=== PATIENT | male | born 1945 | race Caucasian/White ===

== ENCOUNTER 2017-08-14 20:50 | Inpatient (IN) | payer MEDICARE, OTHER ==
[2017-08-14] MEDS ORDERED: fentaNYL 100 MCG/2 ML SDV IVPUSH ONE ×2 (22:27→22:55)
[2017-08-14] MEDS ORDERED: Sodium Chloride 0.9% 1,000 ML IV SCH (22:30)
--- NOTE | 2017-08-14 22:33 | EDM.PDOC ---
ED HPI GENERAL MEDICAL PROBLEM - General Chief Complaint: Upper Extremity Injury/Pain Stated Complaint: FALL Time Seen by Provider: 08/14/17 21:10 Source of Information: Reports: Patient, Family History Limitations: Reports: No Limitations - History of Present Illness INITIAL COMMENTS - FREE TEXT/NARRATIVE: 72-year-old patient caught his foot on one of the legs of his 's walker and fell onto the floor. He fell hard onto his right side, sustaining significant immediate pain in the shoulder and upper arm, as well as the right hip area. He was unable to get up so his family managed to assist him into a chair, finally into a car and then into the ambulance garage. He's having difficulty bearing weight with his right leg and is having significant pain with movement of his right arm. He did not hit his head, did not sustain chest or abdominal injuries. He has a history of a lung transplant 8 years ago but has been doing very well. Onset: Sudden Duration: Hour(s): (Within the past hour) Location: Reports: Upper Extremity, Right, Lower Extremity, Right Quality: Reports: Sharp, Stabbing Severity: Moderate Worsens with: Reports: Other (Right hip pain is worse with movement or weightbearing), Movement (Right arm pain is worse with attempted movement) Associated Symptoms: Reports: No Other Symptoms. Denies: Confusion, Headaches, Nausea/Vomiting, Shortness of Breath right shoulder Pain Score (Numeric/FACES): 10 right hip Pain Score (Numeric/FACES): 7 - Related Data Allergies Allergy/AdvReac Type Severity Reaction Status Date / Time morphine AdvReac Severe Hallucinati Verified 08/14/17 21:00 ons Home Meds: Home Meds Aspirin [Adult Low Dose Aspirin EC] 81 mg PO QAM 03/19/14 [History] Calcium Carbonate/Vitamin D3 [Calcium 250+D] 1 tab PO ACLUNCH 03/19/14 [History] Citalopram Hydrobromide [Celexa] 20 mg PO QPM 03/19/14 [History] ClonazePAM [KlonoPIN] 0.5 mg PO BEDTIME 03/19/14 [History] Fish Oil/Berino-3 Fatty Acids [Fish Oil 1,000 MG] 1 each PO BID 03/19/14 [History ] Insulin Glarg,Human.Rec.Analog [Lantus] 26 unit SQ DAILY 03/19/14 [History] Magnesium Oxide 400 mg PO ACLUNCH 03/19/14 [History] Multivitamin [Multivitamins] 1 each PO ACLUNCH 03/19/14 [History] Propranolol [Inderal] 20 mg PO BEDTIME 03/19/14 [History] Tacrolimus [Prograf] 3 mg PO BEDTIME 03/19/14 [History] amLODIPine Besylate [Amlodipine Besylate] 2.5 mg PO QAM 03/19/14 [History] predniSONE [Prednisone] 5 mg PO QAM 03/19/14 [History] Azithromycin [Zithromax] 250 mg PO .QMWF 02/15/15 [History] Insulin Aspart [Novolog Flexpen] 5 units SUBCUT BID 02/15/15 [History] Mycophenolate [Myfortic] 1,000 mg PO BID 02/15/15 [History] Ranitidine [Zantac] 150 mg PO BID 02/15/15 [History] Sulfamethoxazole/Trimethoprim [Bactrim Ds Tablet] 1 tab PO .QMWF 02/15/15 [ History] Tacrolimus [Prograf] 4 mg PO DAILY 02/15/15 [History] Voriconazole [Vfend] 200 mg PO QAM 02/15/15 [History] Budesonide/Formoterol [Symbicort 160-4.5 MCG] 2 puff INH BID 08/19/15 [History] Cholecalciferol (Vitamin D3) [Vitamin D3] 1 tab PO DAILY 08/19/15 [History] Oxybutynin 5 mg PO BID 08/14/17 [History] Propranolol [Inderal] 30 mg PO DAILY 08/14/17 [History] Vit A/Vit C/Vit E/Zinc/Copper [Preservision] 1 tab PO BID 08/14/17 [History] atorvaSTATin [Lipitor] 40 mg PO BEDTIME 08/14/17 [History] Past Medical History HEENT History: Reports: Cataract Cardiovascular History: Reports: Afib, CAD, High Cholesterol, Hypertension Respiratory History: Reports: Pulmonary Fibrosis, Sleep Apnea, Other (See Below) Other Respiratory History: IPF- idiopathic pulmonary fibrosis. Gastrointestinal History: Reports: Cholelithiasis Genitourinary History: Reports: Chronic Renal Insuffiency, Renal Disease Psychiatric History: Reports: Depression Endocrine/Metabolic History: Reports: Diabetes, Type II, Osteoporosis, Vitamin D Deficiency Hematologic History: Reports: Blood Transfusion(s) Immunologic History: Reports: Immunosuppression Other Immunologic History: antirejection medication d/t lung transplant Oncologic (Cancer) History: Reports: Lung, Other (See Below) Other Oncologic History: squamous sell skin cancer, PTLD- post transplant lymphocyte disorder - Past Surgical History HEENT Surgical History: Reports: Cataract Surgery Other HEENT Surgeries/Procedures: eye surgery Cardiovascular Surgical History: Reports: Coronary Artery Stent, Vascular Surgery Other Respiratory Surgeries/Procedures: Right lung removed, tumor removed for left lung, right lung transplant. 2009 GI Surgical History: Reports: Appendectomy, Cholecystectomy, Colonoscopy, Small Bowel Musculoskeletal Surgical History: Reports: Hip Replacement Social & Family History - Tobacco Use Smoking Status *Q: Former Smoker Years of Tobacco use: 25 Packs/Tins Daily: 1 Used Tobacco, but Quit: Yes Month Tobacco Last Used: 1984 Second Hand Smoke Exposure: No - Caffeine Use Caffeine Use: Reports: Coffee - Alcohol Use Days Per Week of Alcohol Use: 0 - Recreational Drug Use Recreational Drug Use: No Review of Systems - Review of Systems Review Of Systems: See Below Constitutional: Denies: Fever Respiratory: Denies: Shortness of Breath Cardiovascular: Denies: Chest Pain GI/Abdominal: Denies: Nausea, Vomiting Skin: Reports: No Symptoms Neurological: Denies: Headache Psychiatric: Reports: No Symptoms ED EXAM, GENERAL - Physical Exam Exam: See Below Exam Limited By: No Limitations General Appearance: Alert, Mild Distress Eye Exam: Bilateral Eye: EOMI Neck: Supple, Non-Tender Respiratory/Chest: No Respiratory Distress Cardiovascular: Regular Rate, Rhythm GI/Abdominal: Soft, Non-Tender Extremities: Other (Significant discomfort of the proximal right femur and hip area with passive range of motion, no shortening or rotation. Intensely painful in the proximal right humerus with even mild palpation or slight passive range of motion.) Psychiatric: Normal Affect, Normal Mood Skin Exam: Warm, Dry Course - Vital Signs Last Recorded V/S: Last Vital Signs Temp 99.1 F 08/15/17 03:36 Pulse 84 08/15/17 03:36 Resp 18 08/15/17 03:36 BP 117/70 08/15/17 03:36 Pulse Ox 92 L 08/15/17 03:39 - Orders/Labs/Meds Orders: Active Orders 24 hr Category Date Time Status Hip Min 2V or 3V w Pelvis Rt [CR] Stat Exams 08/14/17 21:42 Taken Hip wo Cont Rt [CT] Stat Exams 08/15/17 00:01 Taken Shoulder Comp Rt [CR] Stat Exams 08/14/17 21:42 Taken Sodium Chloride 0.9% [Normal Saline] 1,000 ml Med 08/14/17 22:30 Active IV ASDIRECTED Medication Orders Acetaminophen (Tylenol) 650 mg PO Q4H PRN PRN Reason: Pain (Mild 1-3)/fever Albuterol (Proventil Neb Soln) 2.5 mg NEB Q4H PRN PRN Reason: Shortness Of Breath/wheezing Albuterol/Ipratropium (Duoneb 3.0-0.5 Mg/3 Ml) 3 ml NEB QID PRN PRN Reason: Shortness Of Breath/wheezing Amlodipine Besylate (Norvasc) 2.5 mg PO QAM [facility] Aspirin (Halfprin) 81 mg PO QAM [facility] Atorvastatin Calcium (Lipitor) 40 mg PO BEDTIME [facility] Azithromycin (Zithromax) 250 mg PO MoWeFr@0900 [facility] Bisacodyl (Dulcolax) 5 mg PO DAILY PRN PRN Reason: Constipation Citalopram Hydrobromide (Celexa) 20 mg PO QPM [facility] Clonazepam (Klonopin) 0.5 mg PO BEDTIME [facility] Docusate Sodium (Colace) 100 mg PO BID PRN PRN Reason: Constipation Fentanyl Citrate (Fentanyl In Ns 20 Mcg/Ml 30 Ml Shading Painter) 0 mcg IV ASDIRECTED PRN; Protocol PRN Reason: Pain Last Admin: 08/15/17 03:55 Dose: 600 mcg Sodium Chloride (Normal Saline) 1,000 mls @ 150 mls/hr IV ASDIRECTED [facility] Last Admin: 08/14/17 22:45 Dose: 150 mls/hr Insulin Aspart (Novolog) 5 unit SUBCUT BIDMEALS [facility] Insulin Detemir (Levemir) 26 unit SUBCUT DAILY [facility] Lorazepam (Ativan) 1 mg IV Q6H PRN PRN Reason: Nausea/Vomiting Magnesium Oxide (Magnesium Oxide) 400 mg PO ACLUNCH [facility] Mometasone Furoate/Formoterol Fumar (Dulera 200-5 Mcg) 2 puff IH BIDRT [facility] Naloxone HCl (Narcan) 0.4 mg IVPUSH Q2M PRN PRN Reason: Respiratory Distress Naloxone HCl (Narcan) 0.4 mg IVPUSH Q2M PRN PRN Reason: Respiratory Distress Non-Formulary Medication (Mycophenolate [Myfortic]) 1,000 mg PO BID [facility] Non-Formulary Medication (Voriconazole [Vfend]) 200 mg PO QAM [facility] Ondansetron HCl (Zofran Odt) 4 mg PO Q6H PRN PRN Reason: Nausea able to take PO Oxybutynin Chloride (Oxybutynin) 5 mg PO BID [facility] Prednisone (Prednisone) 5 mg PO QAM [facility] Propranolol HCl (Inderal) 20 mg PO BEDTIME [facility] Propranolol HCl (Inderal) 30 mg PO DAILY [facility] Ranitidine HCl (Zantac) 150 mg PO BID [facility] Tacrolimus (Prograf) 3 mg PO BEDTIME [facility] Tacrolimus (Prograf) 4 mg PO DAILY [facility] Temazepam (Restoril) 15 mg PO BEDTIME PRN PRN Reason: Sleep Trimethoprim/Sulfamethoxazole (Septra Ds) 1 tab PO MoWeFr@0900 [facility] Labs: Laboratory Tests 08/14/17 08/14/17 Range/Units 22:25 22:37 WBC 12.8 H (4.5-11.0) K/uL RBC 4.40 (4.30-5.90) M/uL Hgb 12.8 (12.0-15.0) g/dL Hct 41.5 (40.0-54.0) % MCV 94 (80-98) fL MCH 29 (27-31) pg MCHC 31 L (32-36) % Plt Count 174 (150-400) K/uL Neut % (Auto) 82 H (36-66) % Lymph % (Auto) 5 L (24-44) % Chase % (Auto) 12 H (2-6) % Eos % (Auto) 1 L (2-4) % Baso % (Auto) 0 (0-1) % Sodium 141 (140-148) mmol/L Potassium 5.1 (3.6-5.2) mmol/L Chloride 104 (100-108) mmol/L Carbon Dioxide 27 (21-32) mmol/L Anion Gap 10.1 (5.0-14.0) mmol/L BUN 34 H (7-18) mg/dL Creatinine 1.8 H (0.8-1.3) mg/dL Est Cr Clr Drug Dosing 34.17 mL/min Estimated GFR (MDRD) 37 L (>60) Glucose 165 H (74-106) mg/dL Calcium 9.9 (8.5-10.1) mg/dL Total Bilirubin 0.4 (0.2-1.0) mg/dL AST 22 (15-37) U/L ALT 28 (12-78) U/L Alkaline Phosphatase 108 (46-116) U/L Total Protein 6.7 (6.4-8.2) g/dL Albumin 3.7 (3.4-5.0) g/dL Globulin 3.0 (2.3-3.5) g/dL Albumin/Globulin Ratio 1.2 (1.2-2.2) Meds: Medications Generic Name Dose Route Start Last Admin Trade Name Freq PRN Reason Stop Dose Admin Acetaminophen 650 mg 08/15/17 03:09 Tylenol PO Q4H PRN Pain (Mild 1-3)/fever Albuterol 2.5 mg 08/15/17 03:09 Proventil Neb Soln NEB Q4H PRN Shortness Of Breath/wheezing Albuterol/Ipratropium 3 ml 08/15/17 03:09 Duoneb 3.0-0.5 Mg/3 Ml NEB QID PRN Shortness Of Breath/wheezing Amlodipine Besylate 2.5 mg 08/15/17 09:00 Norvasc PO QAM [facility] Aspirin 81 mg 08/15/17 09:00 Halfprin PO QAM [facility] Atorvastatin Calcium 40 mg 08/15/17 21:00 Lipitor PO BEDTIME [facility] Azithromycin 250 mg 08/16/17 09:00 Zithromax PO MoWeFr@0900 [facility] Bisacodyl 5 mg 08/15/17 03:09 Dulcolax PO DAILY PRN Constipation Citalopram Hydrobromide 20 mg 08/15/17 17:00 Celexa PO QPM [facility] Clonazepam 0.5 mg 08/15/17 21:00 Klonopin PO BEDTIME [facility] Docusate Sodium 100 mg 08/15/17 03:09 Colace PO BID PRN Constipation Fentanyl Citrate 0 mcg 08/15/17 03:09 08/15/17 03:55 Fentanyl In Ns 20 Mcg/Ml 30 Ml Shading Painter IV 600 mcg ASDIRECTED PRN Administration Pain Protocol Sodium Chloride 1,000 mls @ 150 mls/hr 08/14/17 22:30 08/14/17 22:45 Normal Saline IV 150 mls/hr ASDIRECTED [facility] Administration Insulin Aspart 5 unit 08/15/17 08:00 Novolog SUBCUT BIDMEALS [facility] Insulin Detemir 26 unit 08/15/17 09:00 Levemir SUBCUT DAILY [facility] Lorazepam 1 mg 08/15/17 03:09 Ativan IV Q6H PRN Nausea/Vomiting Magnesium Oxide 400 mg 08/15/17 11:00 Magnesium Oxide PO ACLUNCH [facility] Mometasone Furoate/Formoterol Fumar 2 puff 08/15/17 07:00 Dulera 200-5 Mcg IH BIDRT [facility] Naloxone HCl 0.4 mg 08/15/17 03:09 Narcan IVPUSH Q2M PRN Respiratory Distress Naloxone HCl 0.4 mg 08/15/17 03:09 Narcan IVPUSH Q2M PRN Respiratory Distress Non-Formulary Medication 1,000 mg 08/15/17 09:00 Mycophenolate [Myfortic] PO BID [facility] Non-Formulary Medication 200 mg 08/15/17 09:00 Voriconazole [Vfend] PO QAM [facility] Ondansetron HCl 4 mg 08/15/17 03:09 Zofran Odt PO Q6H PRN Nausea able to take PO Oxybutynin Chloride 5 mg 08/15/17 09:00 Oxybutynin PO BID [facility] Prednisone 5 mg 08/15/17 09:00 Prednisone PO QAM [facility] Propranolol HCl 20 mg 08/15/17 21:00 Inderal PO BEDTIME [facility] Propranolol HCl 30 mg 08/15/17 09:00 Inderal PO DAILY [facility] Ranitidine HCl 150 mg 08/15/17 09:00 Zantac PO BID [facility] Tacrolimus 3 mg 08/15/17 21:00 Prograf PO BEDTIME [facility] Tacrolimus 4 mg 08/15/17 09:00 Prograf PO DAILY [facility] Temazepam 15 mg 08/15/17 03:09 Restoril PO BEDTIME PRN Sleep Trimethoprim/Sulfamethoxazole 1 tab 08/16/17 09:00 Septra Ds PO MoWeFr@0900 [facility] Discontinued Medications Generic Name Dose Route Start Last Admin Trade Name Freq PRN Reason Stop Dose Admin Fentanyl 25 mcg 08/14/17 22:27 08/14/17 22:38 Sublimaze IVPUSH 08/14/17 22:28 25 mcg ONETIME ONE Administration Fentanyl 25 mcg 08/14/17 22:55 08/14/17 22:59 Sublimaze IVPUSH 08/14/17 22:56 25 mcg ONETIME ONE Administration Fentanyl 50 mcg 08/15/17 00:30 08/15/17 00:37 Sublimaze IVPUSH 08/15/17 00:31 50 mcg ONETIME ONE Administration Fentanyl 50 mcg 08/15/17 01:59 08/15/17 02:15 Sublimaze IVPUSH 08/15/17 02:00 50 mcg ONETIME ONE Administration Lorazepam 1 mg 08/15/17 01:58 08/15/17 02:12 Ativan IVPUSH 08/15/17 01:59 1 mg ONETIME ONE Administration - Re-Assessments/Exams Free Text/Narrative Re-Assessment/Exam: 08/14/17 22:31 An x-ray of the right shoulder and right hip were obtained. The patient has a spiral minimally displaced fracture of the surgical neck of the right humerus. The hip x-ray looks normal. CBC and CMP were obtained, IV started for pain control and hydration and the patient will be admitted for observation. I did inform orthopedics, Dr. Junaid Ch, who can consult tomorrow. Right arm will be placed in the sling and swath for comfort, he was given 25 g of IV fentanyl. 08/15/17 01:13 Because of the intense right hip pain, CT of the right hip was obtained. This did reveal a lucency in the acetabulum, likely a nondisplaced fracture. Departure - Departure Time of Disposition: 03:18 Disposition: Admitted As Inpatient 65 Condition: Fair Clinical Impression: Lung transplanted Right humeral fracture Qualifiers: Encounter type: initial encounter Humerus Location: surgical neck Fracture type : closed Fracture morphology: unspecified fracture morphology Fracture alignment : displaced Qualified Code(s): S42.211A - Unspecified displaced fracture of surgical neck of right humerus, initial encounter for closed fracture Right acetabular fracture Qualifiers: Encounter type: initial encounter Sublocation of acetabulum: unspecified portion of acetabulum Fracture type: closed Fracture alignment: nondisplaced Qualified Code(s): S32.401A - Unspecified fracture of right acetabulum, initial encounter for closed fracture - Discharge Information - My Orders Last 24 Hours: My Active Orders 08/14/17 21:42 Hip Min 2V or 3V w Pelvis Rt [CR] Stat Shoulder Comp Rt [CR] Stat 08/14/17 22:30 Sodium Chloride 0.9% [Normal Saline] 1,000 ml IV ASDIRECTED 08/15/17 00:01 Hip wo Cont Rt [CT] Stat - Assessment/Plan Last 24 Hours: My Active Orders 08/14/17 21:42 Hip Min 2V or 3V w Pelvis Rt [CR] Stat Shoulder Comp Rt [CR] Stat 08/14/17 22:30 Sodium Chloride 0.9% [Normal Saline] 1,000 ml IV ASDIRECTED 08/15/17 00:01 Hip wo Cont Rt [CT] Stat
[2017-08-15] MEDS ORDERED: fentaNYL 100 MCG/2 ML SDV IVPUSH ONE ×2 (00:30→01:59)
[2017-08-15] MEDS ORDERED: LORazepam 2 MG/ML MDV IVPUSH ONE (01:58)
[2017-08-15] MEDS ORDERED: Albuterol/Ipratropium 3.0-0.5 MG/3 ML Neb Soln NEB PRN (03:09)
[2017-08-15] MEDS ORDERED: fentaNYL/Normal Saline 600 MCG/30 ML PCA Vial IV PRN (03:09)
[2017-08-15] MEDS ORDERED: LORazepam 2 MG/ML MDV IV PRN (03:09)
[2017-08-15] MEDS ORDERED: Temazepam 15 MG Cap PO PRN (03:09)
[2017-08-15] MEDS ORDERED: Acetaminophen 325 MG Tab PO PRN (03:09)
[2017-08-15] MEDS ORDERED: Ondansetron 4 MG Tab.DIS PO PRN (03:09)
[2017-08-15] MEDS ORDERED: Naloxone 0.4 MG/ML SDV IVPUSH PRN ×2 (03:09)
[2017-08-15] MEDS ORDERED: Docusate Sodium 100 MG Cap PO PRN (03:09)
[2017-08-15] MEDS ORDERED: Bisacodyl 5 MG Tab PO PRN (03:09)
[2017-08-15] MEDS ORDERED: Albuterol 0.083% 2.5 MG/3 ML Neb Soln NEB PRN (03:09)
--- NOTE | 2017-08-15 03:14 | PCM.HP ---
H&P History of Present Illness - General Date of Service: 08/14/17 Admit Problem/Dx: Admission Diagnosis/Problem Admission Diagnosis/Problem Fall at home Source of Information: Patient History Limitations: Reports: No Limitations - History of Present Illness Initial Comments - Free Text/Narative: 72-year-old patient caught his foot on one of the legs of his 's walker and fell onto the floor. He fell hard onto his right side, sustaining significant immediate pain in the shoulder and upper arm, as well as the right hip area. He was unable to get up so his family managed to assist him into a chair, finally into a car and then into the ambulance garage. He's having difficulty bearing weight with his right leg and is having significant pain with movement of his right arm. He did not hit his head, did not sustain chest or abdominal injuries. He has a history of a lung transplant 8 years ago but has been doing very well. Onset: Sudden Duration: Hour(s): (Within the past hour) Location: Reports: Upper Extremity, Right, Lower Extremity, Right Quality: Reports: Sharp, Stabbing Severity: Moderate Worsens with: Reports: Other (Right hip pain is worse with movement or weightbearing), Movement (Right arm pain is worse with attempted movement) Associated Symptoms: Reports: No Other Symptoms. Denies: Confusion, Headaches, Nausea/Vomiting, Shortness of Breath right shoulder Pain Score (Numeric/FACES): 10 right hip Pain Score (Numeric/FACES): 7 Onset of Symptoms: Reports: Today Duration of Symptoms: Reports: Hour(s):, Constant Location: Reports: Upper Extremity, Right, Lower Extremity, Right Quality: Reports: Sharp, Throbbing Severity: Severe Improves with: Reports: Immobilization Worsens with: Reports: Movement Context: Reports: Trauma (fall at home) Associated Symptoms: Reports: No Other Symptoms right shoulder Pain Score (Numeric/FACES): 10 right hip Pain Score (Numeric/FACES): 7 - Related Data Allergies/Adverse Reactions: Allergies Allergy/AdvReac Type Severity Reaction Status Date / Time morphine AdvReac Severe Hallucinati Verified 08/14/17 21:00 ons Home Medications: Home Meds Aspirin [Adult Low Dose Aspirin EC] 81 mg PO QAM 03/19/14 [History] Calcium Carbonate/Vitamin D3 [Calcium 250+D] 1 tab PO ACLUNCH 03/19/14 [History] Citalopram Hydrobromide [Celexa] 20 mg PO QPM 03/19/14 [History] ClonazePAM [KlonoPIN] 0.5 mg PO BEDTIME 03/19/14 [History] Fish Oil/[place]-3 Fatty Acids [Fish Oil 1,000 MG] 1 each PO BID 03/19/14 [History ] Insulin Glarg,Human.Rec.Analog [Lantus] 26 unit SQ DAILY 03/19/14 [History] Magnesium Oxide 400 mg PO ACLUNCH 03/19/14 [History] Multivitamin [Multivitamins] 1 each PO ACLUNCH 03/19/14 [History] Propranolol [Inderal] 20 mg PO BEDTIME 03/19/14 [History] Tacrolimus [Prograf] 3 mg PO BEDTIME 03/19/14 [History] amLODIPine Besylate [Amlodipine Besylate] 2.5 mg PO QAM 03/19/14 [History] predniSONE [Prednisone] 5 mg PO QAM 03/19/14 [History] Azithromycin [Zithromax] 250 mg PO .QMWF 02/15/15 [History] Insulin Aspart [Novolog Flexpen] 5 units SUBCUT BID 02/15/15 [History] Mycophenolate [Myfortic] 1,000 mg PO BID 02/15/15 [History] Ranitidine [Zantac] 150 mg PO BID 02/15/15 [History] Sulfamethoxazole/Trimethoprim [Bactrim Ds Tablet] 1 tab PO .QMWF 02/15/15 [ History] Tacrolimus [Prograf] 4 mg PO DAILY 02/15/15 [History] Voriconazole [Vfend] 200 mg PO QAM 02/15/15 [History] Budesonide/Formoterol [Symbicort 160-4.5 MCG] 2 puff INH BID 08/19/15 [History] Cholecalciferol (Vitamin D3) [Vitamin D3] 1 tab PO DAILY 08/19/15 [History] Oxybutynin 5 mg PO BID 08/14/17 [History] Propranolol [Inderal] 30 mg PO DAILY 08/14/17 [History] Vit A/Vit C/Vit E/Zinc/Copper [Preservision] 1 tab PO BID 08/14/17 [History] atorvaSTATin [Lipitor] 40 mg PO BEDTIME 08/14/17 [History] Past Medical History HEENT History: Reports: Cataract Cardiovascular History: Reports: Afib, CAD, High Cholesterol, Hypertension Respiratory History: Reports: Pulmonary Fibrosis, Sleep Apnea, Other (See Below) Other Respiratory History: IPF- idiopathic pulmonary fibrosis. Gastrointestinal History: Reports: Cholelithiasis Genitourinary History: Reports: Chronic Renal Insuffiency, Renal Disease Psychiatric History: Reports: Depression Endocrine/Metabolic History: Reports: Diabetes, Type II, Osteoporosis, Vitamin D Deficiency Hematologic History: Reports: Blood Transfusion(s) Immunologic History: Reports: Immunosuppression Other Immunologic History: antirejection medication d/t lung transplant Oncologic (Cancer) History: Reports: Lung, Other (See Below) Other Oncologic History: squamous sell skin cancer, PTLD- post transplant lymphocyte disorder - Past Surgical History HEENT Surgical History: Reports: Cataract Surgery Other HEENT Surgeries/Procedures: eye surgery Cardiovascular Surgical History: Reports: Coronary Artery Stent, Vascular Surgery Other Respiratory Surgeries/Procedures: Right lung removed, tumor removed for left lung, right lung transplant. 2009 GI Surgical History: Reports: Appendectomy, Cholecystectomy, Colonoscopy, Small Bowel Musculoskeletal Surgical History: Reports: Hip Replacement Social & Family History - Tobacco Use Smoking Status *Q: Former Smoker Years of Tobacco use: 25 Packs/Tins Daily: 1 Used Tobacco, but Quit: Yes Month Tobacco Last Used: 1984 Second Hand Smoke Exposure: No - Caffeine Use Caffeine Use: Reports: Coffee - Alcohol Use Days Per Week of Alcohol Use: 0 - Recreational Drug Use Recreational Drug Use: No H&P Review of Systems - Review of Systems: Review Of Systems: See Below General: Reports: Other (pain in right upper arm and right hip and leg) HEENT: Reports: No Symptoms Pulmonary: Reports: No Symptoms Cardiovascular: Reports: No Symptoms Gastrointestinal: Reports: No Symptoms Genitourinary: Reports: No Symptoms Musculoskeletal: Reports: Arm Pain, Leg Pain, Joint Pain, Muscle Pain Skin: Reports: No Symptoms Psychiatric: Reports: Anxiety (PTSD) Neurological: Reports: Tremors Hematologic/Lymphatic: Reports: No Symptoms Immunologic: Reports: No Symptoms Exam - Exam Exam: See Below - Vital Signs Vital Signs: Last Vital Signs Temp 37.2 C 08/14/17 23:02 Pulse 76 08/14/17 20:57 Resp 18 08/14/17 23:02 BP 114/70 08/14/17 23:02 Pulse Ox 91 L 11/15/17 23:02 Weight: 67.585 kg - Exam General: Alert, Oriented, Cooperative, Sedated HEENT: PERRLA, Conjunctiva Clear, EACs Clear, EOMI, Hearing Intact, Mucosa Moist & [place], Nares Patent, Normal Nasal Septum, Posterior Pharynx Clear, TMs Clear, Glasses Neck: Supple, Trachea Midline, 2 Lungs: Clear to Auscultation, Normal Respiratory Effort Cardiovascular: Regular Rate, Regular Rhythm, Normal S1, Normal S2 GI/Abdominal Exam: Normal Bowel Sounds, Soft, Non-Tender, Other (right hip and pelvis pain ) (Male) Exam: Deferred Rectal (Males) Exam: Deferred Back Exam: Muscle Spasm Extremities: No Pedal Edema, Arm Pain, Leg Pain Peripheral Pulses: 2+: Radial (L), Radial (R), Dorsalis Pedis (L), Dorsalis Pedis (R) Neurological: Normal Speech, Other (tremors noted) Neuro Extensive - Mental Status: Alert, Oriented x3, Normal Mood/Affect, Normal Cognition Psychiatric: Alert, Normal Affect, Normal Mood - Patient Data Result Diagrams: 08/14/17 22:25 08/14/17 22:37 *Q Meaningful Use (ADM) - VTE *Q VTE Criteria *Q: - Stroke *Q Stroke Criteria *Q: - AMI *Q AMI Criteria *Q: - Problem List (1) Acetabulum fracture, right SNOMED Code(s): 03463398 ICD Code: S32.401A - UNSP FRACTURE OF RIGHT ACETABULUM, INIT FOR CLOS FX Status: Acute Priority: High Current Visit: Yes Qualifiers: Encounter type: initial encounter Sublocation of acetabulum: unspecified portion of acetabulum Fracture type: closed Fracture alignment: nondisplaced Qualified Code(s): S32.401A - Unspecified fracture of right acetabulum, initial encounter for closed fracture (2) Diabetes type 2, controlled SNOMED Code(s): 32427698 ICD Code: E11.9 - TYPE 2 DIABETES MELLITUS WITHOUT COMPLICATIONS Status: Acute Priority: Low Current Visit: Yes Qualifiers: Diabetes mellitus complication status: without complication Diabetes mellitus termination clerk insulin use: with termination clerk use Qualified Code(s): E11.9 - Type 2 diabetes mellitus without complications; Z79.4 - intermodal dispatcher (current) use of insulin; Z79.4 - intermodal dispatcher (current) use of insulin; Z79.4 - residential ( current) use of insulin; Z79.4 - residential (current) use of insulin (3) Lung transplanted SNOMED Code(s): 418217987 ICD Code: Z94.2 - LUNG TRANSPLANT STATUS Status: Acute Priority: Low Current Visit: Yes (4) Right humeral fracture SNOMED Code(s): 97338422 ICD Code: S42.301A - UNSP FRACTURE OF SHAFT OF HUMERUS, RIGHT ARM, INIT Status: Acute Priority: High Current Visit: Yes Qualifiers: Encounter type: initial encounter Humerus Location: surgical neck Fracture type: closed Fracture morphology: unspecified fracture morphology Fracture alignment: displaced Qualified Code(s): S42.211A - Unspecified displaced fracture of surgical neck of right humerus, initial encounter for closed fracture (5) Stage III chronic kidney disease SNOMED Code(s): 157922886 ICD Code: N18.3 - CHRONIC KIDNEY DISEASE, STAGE 3 (MODERATE) Status: Chronic Priority: Medium Current Visit: No Problem List Initiated/Reviewed/Updated: Yes Orders Last 24hrs: Active Orders 24 hr Category Date Time Status Patient Status [ADT] Routine ADT 08/15/17 03:09 Active Bedrest Bathroom Privileges [RC] ASDIRECTED Care 08/15/17 03:09 Active Communication Order [RC] STAT Care 08/15/17 03:09 Active Intake and Output [RC] QSHIFT Care 08/15/17 03:09 Active Notify Provider Consults [RC] ASDIRECTED Care 08/15/17 03:09 Active Notify Provider [RC] PRN Care 08/15/17 03:09 Active Oxygen Therapy [RC] PRN Care 08/15/17 03:09 Active APPLICATION DEVELOPMENT SPECIALIST Record [RC] PER UNIT ROUTINE Care 08/15/17 03:09 Active Pulse Oximetry [RC] CONTINUOUS Care 08/15/17 03:09 Active RT Aerosol Therapy [RC] ASDIRECTED Care 08/15/17 03:09 Active Up With Assistance [RC] ASDIRECTED Care 08/15/17 03:09 Active VTE/DVT Education [RC] Per Unit Routine Care 08/15/17 03:09 Active VTE/DVT Education [RC] Per Unit Routine Care 08/15/17 03:09 Active Vital Signs [RC] Q4H Care 08/15/17 03:09 Active Consult to Physician [CONS] Urgent Cons 08/15/17 03:09 Ordered OT Evaluation and Treatment [CONS] Routine Cons 08/15/17 03:09 Active PT Evaluation and Treatment [CONS] Routine Cons 08/15/17 03:09 Active Regular Diet [DIET] Diet 08/15/17 Breakfast Active BASIC METABOLIC PANEL,BMP [CHEM] AM Lab 08/15/17 05:11 Ordered CBC WITH AUTO DIFF [HEME] AM Lab 08/15/17 05:11 Ordered Acetaminophen [Tylenol] Med 08/15/17 03:09 Ordered 650 mg PO Q4H PRN Albuterol [Proventil Neb Soln] Med 08/15/17 03:09 Ordered 2.5 mg NEB Q4H PRN Albuterol/Ipratropium [DuoNeb 3.0-0.5 MG/3 ML] Med 08/15/17 03:09 Ordered 3 ml NEB QID PRN Aspirin [Halfprin] Med 08/15/17 09:00 Ordered 81 mg PO QAM Azithromycin [Zithromax] Med 08/15/17 03:09 Ordered 250 mg PO .QMWF Bisacodyl [Dulcolax] Med 08/15/17 03:09 Ordered 5 mg PO DAILY PRN Budesonide/Formoterol [Symbicort 160-4.5 MCG] Med 08/15/17 09:00 Ordered 2 puff INH BID Citalopram Hydrobromide [Celexa] Med 08/15/17 17:00 Ordered 20 mg PO QPM ClonazePAM [KlonoPIN] Med 08/15/17 21:00 Ordered 0.5 mg PO BEDTIME Docusate Sodium [Colace] Med 08/15/17 03:09 Ordered 100 mg PO BID PRN Insulin Aspart [NovoLOG] Med 08/15/17 09:00 Ordered 5 unit SUBCUT BID Insulin Glarg,Human.Rec.Analog [Lantus] Med 08/15/17 09:00 Ordered 26 unit SQ DAILY LORazepam [Ativan] Med 08/15/17 03:09 Ordered 1 mg IV Q6H PRN Magnesium Oxide Med 08/15/17 11:00 Ordered 400 mg PO ACLUNCH Mycophenolate [Myfortic] Med 08/15/17 09:00 Ordered 1,000 mg PO BID Naloxone [Narcan] Med 08/15/17 03:09 Ordered 0.4 mg IVPUSH Q2M PRN Naloxone [Narcan] Med 08/15/17 03:09 Ordered 0.4 mg IVPUSH Q2M PRN Ondansetron [Zofran ODT] Med 08/15/17 03:09 Ordered 4 mg PO Q6H PRN Oxybutynin Med 08/15/17 09:00 Ordered 5 mg PO BID Propranolol [Inderal] Med 08/15/17 21:00 Ordered 20 mg PO BEDTIME Propranolol [Inderal] Med 08/15/17 09:00 Ordered 30 mg PO DAILY Ranitidine [Zantac] Med 08/15/17 09:00 Ordered 150 mg PO BID Sulfamethoxazole/Trimethoprim [Septra DS] Med 08/15/17 03:09 Ordered 1 tab PO .QMWF Tacrolimus [Prograf] Med 08/15/17 21:00 Ordered 3 mg PO BEDTIME Tacrolimus [Prograf] Med 08/15/17 09:00 Ordered 4 mg PO DAILY Temazepam [Restoril] Med 08/15/17 03:09 Ordered 15 mg PO BEDTIME PRN Voriconazole [Vfend] Med 08/15/17 09:00 Ordered 200 mg PO QAM amLODIPine [Norvasc] Med 08/15/17 09:00 Ordered 2.5 mg PO QAM atorvaSTATin [Lipitor] Med 08/15/17 21:00 Ordered 40 mg PO BEDTIME fentaNYL/Normal Saline [fentaNYL in NS 20 MCG/ML 30 ML Med 08/15/17 03:09 Ordered APPLICATION DEVELOPMENT SPECIALIST] See Protocol IV ASDIRECTED PRN predniSONE Med 08/15/17 09:00 Ordered 5 mg PO QAM Medication Discontinuation Instructions [OM.PC] Stat Oth 08/15/17 03:09 Ordered Sequential Compression Device [OM.PC] Per Unit Routine Oth 08/15/17 03:09 Ordered Resuscitation Status Routine Resus Stat 08/15/17 02:10 Ordered Medication Orders Acetaminophen (Tylenol) 650 mg PO Q4H PRN PRN Reason: Pain (Mild 1-3)/fever Albuterol (Proventil Neb Soln) 2.5 mg NEB Q4H PRN PRN Reason: Shortness Of Breath/wheezing Albuterol/Ipratropium (Duoneb 3.0-0.5 Mg/3 Ml) 3 ml NEB QID PRN PRN Reason: Shortness Of Breath/wheezing Amlodipine Besylate (Norvasc) 2.5 mg PO QAM [facility] Aspirin (Halfprin) 81 mg PO QAM [facility] Azithromycin (Zithromax) 250 mg PO .QMWF [facility] Bisacodyl (Dulcolax) 5 mg PO DAILY PRN PRN Reason: Constipation Clonazepam (Klonopin) 0.5 mg PO BEDTIME [facility] Docusate Sodium (Colace) 100 mg PO BID PRN PRN Reason: Constipation Fentanyl Citrate (Fentanyl In Ns 20 Mcg/Ml 30 Ml Boiler Cleaner) 0 mcg IV ASDIRECTED PRN; Protocol PRN Reason: Pain Sodium Chloride (Normal Saline) 1,000 mls @ 150 mls/hr IV ASDIRECTED [facility] Last Admin: 08/14/17 22:45 Dose: 150 mls/hr Insulin Aspart (Novolog) 5 unit SUBCUT BID [facility] Lorazepam (Ativan) 1 mg IV Q6H PRN PRN Reason: Nausea/Vomiting Magnesium Oxide (Magnesium Oxide) 400 mg PO ACLUNCH [facility] Naloxone HCl (Narcan) 0.4 mg IVPUSH Q2M PRN PRN Reason: Respiratory Distress Naloxone HCl (Narcan) 0.4 mg IVPUSH Q2M PRN PRN Reason: Respiratory Distress Non-Formulary Medication (Atorvastatin [Lipitor]) 40 mg PO BEDTIME [facility] Non-Formulary Medication (Budesonide/Formoterol [Symbicort 160-4.5 Mcg]) 2 puff INH BID [facility] Non-Formulary Medication (Citalopram Hydrobromide [Celexa]) 20 mg PO QPM [facility] Non-Formulary Medication (Insulin Glarg,Human.Rec.Analog [Lantus]) 26 unit SQ DAILY [facility] Non-Formulary Medication (Mycophenolate [Myfortic]) 1,000 mg PO BID [facility] Non-Formulary Medication (Voriconazole [Vfend]) 200 mg PO QAM [facility] Ondansetron HCl (Zofran Odt) 4 mg PO Q6H PRN PRN Reason: Nausea able to take PO Oxybutynin Chloride (Oxybutynin) 5 mg PO BID [facility] Prednisone (Prednisone) 5 mg PO QAM [facility] Propranolol HCl (Inderal) 20 mg PO BEDTIME [facility] Propranolol HCl (Inderal) 30 mg PO DAILY [facility] Ranitidine HCl (Zantac) 150 mg PO BID [facility] Tacrolimus (Prograf) 3 mg PO BEDTIME [facility] Tacrolimus (Prograf) 4 mg PO DAILY [facility] Temazepam (Restoril) 15 mg PO BEDTIME PRN PRN Reason: Sleep Trimethoprim/Sulfamethoxazole (Septra Ds) 1 tab PO .QMWF [facility] Assessment/Plan Comment:: Admission Template ASSESSMENT / PLAN This is a 72 year old male who fell at home prior to arrival from home. His ER evaluation noted fracture to right humerus and right acetabular. An x-ray of the right shoulder and right hip were obtained. The patient has a spiral minimally displaced fracture of the surgical neck of the right humerus. The hip x-ray looks normal. CBC and CMP were obtained, IV started for pain control and hydration and the patient will be admitted for pain control and ortho consult. ER Physician did inform orthopedics, Dr. Junaid hC, who can consult tomorrow. Right arm will be placed in the sling and swath for comfort, he was given 25 g of IV fentanyl. Because of the intense right hip pain, CT of the right hip was obtained. This did reveal a lucency in the acetabulum, likely a nondisplaced fracture. Goals: Patient will be admitted for pain control of his right humeral fracture and acetabular fracture, and an orthopedic evaluation of the fractures will be obtained tomorrow. Plan Fracture Right humeral, and right acetabular -Admit to ICU med overflow for further monitoring -IV Fluids for rehydration NS at 125 mL per hour -APPLICATION DEVELOPMENT SPECIALIST fentanyl -right arm in sling -right leg no wt bearing Diabete Type 2 -order Lantas 26 units subcut daily -order Novolog 5 units subcut bid -blood glucose check before meals and at bedtime hx of lung transplant -medication order Maintenance issues -Orders home meds: -Nutrition: regular diet -[place]ondon catheter not indicated at this time -DVT: SCD -PPI; PO Protonix 40mg daily -consult OT for discharge planning -consult PT for strengthing. CODE STATUS: FULL CODE Admission status: Admit to ICU Med-surge overflow Admission justification. This patient will be admitted for inpatient services and is medically appropriate meeting medical necessity for inpatient admission as outlined in my documentation. I reasonably expect the patient will require inpatient services that span. Time over 2 midnights. I reasonably expect this patient to be discharged or transferred within 96 hours after admission to the critical access hospital. Disposition; home Primary care provider: [facility], notified Hospitalist: Dr. Marie
[2017-08-15] MEDS ORDERED: Formoterol/Mometasone 200-5 MCG 8.8 GM Inhaler IH SCH (07:00)
[2017-08-15] MEDS: Formoterol/Mometasone 200-5 MCG 8.8 GM Inhaler IH SCH ×2 (08:11→21:06)
[2017-08-15] MEDS: Insulin Aspart 100 Units/ML 3 ML Pen SUBCUT SCH ×2 (08:22→17:09)
--- NOTE | 2017-08-15 08:32 | CR ---
Right humeral surgical neck fracture with minimal displacement. No pneumothorax the right. Rib fractu res on the right are likely remote.
[2017-08-15] MEDS: Tacrolimus 1 MG Cap PO SCH ×2 (08:34→21:07)
--- NOTE | 2017-08-15 08:34 | CR ---
Right femoral neck is intact. Slight irregularity at the superior pubic ramus. Refer to CT.
[2017-08-15] MEDS: Mycophenolate Mofetil 250 MG Cap PO SCH ×2 (08:35→21:07)
[2017-08-15] MEDS: Propranolol 10 MG Tab PO SCH ×2 (08:38→21:07)
[2017-08-15] MEDS: Aspirin 81 MG Tab.EC PO SCH (08:39)
[2017-08-15] MEDS: Oxybutynin 5 MG Tab PO SCH ×2 (08:40→21:07)
[2017-08-15] MEDS: amLODIPine 2.5 MG Tab PO SCH (08:40)
[2017-08-15] MEDS: Insulin Detemir 100 Units/ML 3 ML Pen SUBCUT SCH (08:46)
[2017-08-15] MEDS ORDERED: Non-Formulary Medication 1 Each (Budesonide/Formoterol [Symbicort 160-4.5 Mcg] 2 PUFF) INH SCH (09:00)
[2017-08-15] MEDS ORDERED: predniSONE 10 MG Tab PO SCH (09:00)
--- NOTE | 2017-08-15 10:00 | PCM.PN ---
- General Info Date of Service: 08/15/17 Subjective Update: Mr. Garcia is a 72-year-old gentleman who fell yesterday and experienced a right humerus fracture as well is a right acetabular fracture. He is been stable since admission and reports that his current pain control is adequate. Denies any symptoms of chest pain or pressure or significant shortness of breath. - Review of Systems General: Reports: Weakness. Denies: Fever, Chills Pulmonary: Reports: No Symptoms Cardiovascular: Reports: No Symptoms Gastrointestinal: Reports: No Symptoms Musculoskeletal: Reports: Arm Pain, Leg Pain, Joint Pain - Patient Data Vitals - Most Recent: Last Vital Signs Temp 98.8 F 08/15/17 08:25 Pulse 80 08/15/17 08:38 Resp 16 08/15/17 08:25 BP 120/68 08/15/17 08:40 Pulse Ox 94 L 08/15/17 08:25 Weight - Most Recent: 151 lb 14.411 oz I&O - Last 24 Hours: Intake & Output 08/14/17 08/15/17 08/15/17 22:59 06:59 14:59 Intake Total 569 Balance 569 Lab Results Last 24 Hours: Laboratory Results - last 24 hr 08/15/17 08/15/17 Range/Units 05:05 05:05 WBC 9.3 (4.5-11.0) K/uL RBC 3.70 L (4.30-5.90) M/uL Hgb 10.9 L (12.0-15.0) g/dL Hct 35.3 L (40.0-54.0) % MCV 95 (80-98) fL MCH 30 (27-31) pg MCHC 31 L (32-36) % Plt Count 136 L (150-400) K/uL Neut % (Auto) 79 H (36-66) % Lymph % (Auto) 8 L (24-44) % [place] % (Auto) 12 H (2-6) % Eos % (Auto) 1 L (2-4) % Baso % (Auto) 0 (0-1) % Sodium 141 (140-148) mmol/L Potassium 4.3 (3.6-5.2) mmol/L Chloride 106 (100-108) mmol/L Carbon Dioxide 25 (21-32) mmol/L Anion Gap 10.4 (5.0-14.0) mmol/L BUN 35 H (7-18) mg/dL Creatinine 1.7 H (0.8-1.3) mg/dL Est Cr Clr Drug Dosing 36.18 mL/min Estimated GFR (MDRD) 40 L (>60) Glucose 163 H (74-106) mg/dL Calcium 8.9 (8.5-10.1) mg/dL Med Orders - Current: Current Medications Acetaminophen (Tylenol) 650 mg PO Q4H PRN PRN Reason: Pain (Mild 1-3)/fever Albuterol (Proventil Neb Soln) 2.5 mg NEB Q4H PRN PRN Reason: Shortness Of Breath/wheezing Albuterol/Ipratropium (Duoneb 3.0-0.5 Mg/3 Ml) 3 ml NEB QID PRN PRN Reason: Shortness Of Breath/wheezing Amlodipine Besylate (Norvasc) 2.5 mg PO QAM [facility] Last Admin: 08/15/17 08:40 Dose: 2.5 mg Aspirin (Halfprin) 81 mg PO QAM [facility] Last Admin: 08/15/17 08:39 Dose: 81 mg Atorvastatin Calcium (Lipitor) 40 mg PO BEDTIME [facility] Azithromycin (Zithromax) 250 mg PO MoWeFr@0900 [facility] Bisacodyl (Dulcolax) 5 mg PO DAILY PRN PRN Reason: Constipation Citalopram Hydrobromide (Celexa) 20 mg PO QPM [facility] Clonazepam (Klonopin) 0.5 mg PO BEDTIME [facility] Docusate Sodium (Colace) 100 mg PO BID PRN PRN Reason: Constipation Fentanyl Citrate (Fentanyl In Ns 20 Mcg/Ml 30 Ml Food Supervisor) 0 mcg IV ASDIRECTED PRN; Protocol PRN Reason: Pain Last Admin: 08/15/17 03:55 Dose: 600 mcg Sodium Chloride (Normal Saline) 1,000 mls @ 150 mls/hr IV ASDIRECTED [facility] Last Admin: 08/14/17 22:45 Dose: 150 mls/hr Insulin Aspart (Novolog) 5 unit SUBCUT BIDMEALS [facility] Last Admin: 08/15/17 08:22 Dose: 5 units Insulin Detemir (Levemir) 26 unit SUBCUT DAILY [facility] Last Admin: 08/15/17 08:46 Dose: 26 units Lorazepam (Ativan) 1 mg IV Q6H PRN PRN Reason: Nausea/Vomiting Magnesium Oxide (Magnesium Oxide) 400 mg PO ACLUNCH [facility] Mometasone Furoate/Formoterol Fumar (Dulera 200-5 Mcg) 2 puff IH BIDRT [facility] Last Admin: 08/15/17 08:11 Dose: 2 puff Mycophenolate Mofetil (Cellcept) 1,000 mg PO BID [facility] Last Admin: 08/15/17 08:35 Dose: 1,000 mg Naloxone HCl (Narcan) 0.4 mg IVPUSH Q2M PRN PRN Reason: Respiratory Distress Naloxone HCl (Narcan) 0.4 mg IVPUSH Q2M PRN PRN Reason: Respiratory Distress (Voriconazole [Vfend (] 200 Mg)*Pom*) 200 mg PO QAM [facility] Ondansetron HCl (Zofran Odt) 4 mg PO Q6H PRN PRN Reason: Nausea able to take PO Oxybutynin Chloride (Oxybutynin) 5 mg PO BID [facility] Last Admin: 08/15/17 08:40 Dose: 5 mg Prednisone (Prednisone) 5 mg PO QAM [facility] Last Admin: 08/15/17 08:41 Dose: 5 mg Propranolol HCl (Inderal) 20 mg PO BEDTIME [facility] Propranolol HCl (Inderal) 30 mg PO DAILY [facility] Last Admin: 08/15/17 08:38 Dose: 30 mg Ranitidine HCl (Zantac) 150 mg PO BID [facility] Last Admin: 08/15/17 08:41 Dose: 150 mg Tacrolimus (Prograf) 3 mg PO BEDTIME [facility] Tacrolimus (Prograf) 4 mg PO DAILY [facility] Last Admin: 08/15/17 08:34 Dose: 4 mg Temazepam (Restoril) 15 mg PO BEDTIME PRN PRN Reason: Sleep Trimethoprim/Sulfamethoxazole (Septra Ds) 1 tab PO MoWeFr@0900 [facility] Discontinued Medications Fentanyl (Sublimaze) 25 mcg IVPUSH ONETIME ONE Stop: 08/14/17 22:28 Last Admin: 08/14/17 22:38 Dose: 25 mcg Fentanyl (Sublimaze) 25 mcg IVPUSH ONETIME ONE Stop: 08/14/17 22:56 Last Admin: 08/14/17 22:59 Dose: 25 mcg Fentanyl (Sublimaze) 50 mcg IVPUSH ONETIME ONE Stop: 08/15/17 00:31 Last Admin: 08/15/17 00:37 Dose: 50 mcg Fentanyl (Sublimaze) 50 mcg IVPUSH ONETIME ONE Stop: 08/15/17 02:00 Last Admin: 08/15/17 02:15 Dose: 50 mcg Lorazepam (Ativan) 1 mg IVPUSH ONETIME ONE Stop: 08/15/17 01:59 Last Admin: 08/15/17 02:12 Dose: 1 mg Mometasone Furoate/Formoterol Fumar (Dulera 200-5 Mcg) 2 puff IH BIDRT [facility] - Exam Quality Assessment: DVT Prophylaxis General: Alert, Oriented, Cooperative Lungs: Clear to Auscultation, Normal Respiratory Effort Cardiovascular: Regular Rate, Regular Rhythm, No Murmurs GI/Abdominal Exam: Normal Bowel Sounds, Soft, Non-Tender, No Organomegaly, No Distention Extremities: Arm Pain, Leg Pain - Problem List Review Problem List Initiated/Reviewed/Updated: Yes - My Orders Last 24 Hours: My Active Orders 08/16/17 05:00 BASIC METABOLIC PANEL,BMP [CHEM] Timed CBC WITH AUTO DIFF [HEME] Timed - Plan Plan:: ASSESSMENT / PLAN FRACTURES OF RIGHT HUMERUS AND RIGHT ACETABULUM -IV Fluids for rehydration NS at 125 mL per hour -MAIL LIST LIBRARIAN fentanyl -right arm in sling -right leg no wt bearing -Orthopedic surgery consult today with Dr. Dima Doherty Type 2 -order Lantas 26 units subcut daily -order Novolog 5 units subcut bid -blood glucose check before meals and at bedtime hx of lung transplant -Continue outpatient medical regimen Maintenance issues -Orders home meds: -Nutrition: regular diet -Condon catheter not indicated at this time -DVT: Lovenox 40 mg subcutaneous daily, SCUDs -PPI; PO Protonix 40mg daily -consult OT for discharge planning -consult PT for strengthing. CODE STATUS: FULL CODE Admission status: Admit to ICU Med-surge overflow Admission justification. This patient will be admitted for inpatient services and is medically appropriate meeting medical necessity for inpatient admission as outlined in my documentation. I reasonably expect the patient will require inpatient services that span. Time over 2 midnights. I reasonably expect this patient to be discharged or transferred within 96 hours after admission to the critical access hospital. Disposition; home Primary care provider: [facility], notified Hospitalist: Dr. Marie
[2017-08-15] MEDS: Enoxaparin 40 MG/0.4 ML Syringe SUBCUT SCH (11:47)
[2017-08-15] MEDS: Magnesium Oxide 400 MG Tab PO SCH (11:48)
--- NOTE | 2017-08-15 14:28 | PCM.CONS ---
H&P History of Present Illness - General Date of Service: 08/15/17 Admit Problem/Dx: Admission Diagnosis/Problem Admission Diagnosis/Problem Fall at home Jn is a pleasant 72-year-old male who experienced a fall at home causing him pain in his left hip and left arm. He was diagnosed with a hip fracture and humerus fracture was admitted to the ICU unit. He admits he has had no other injury at this time. Patient does have a history of lung transplant. He also has a history of a left hip replacement. right shoulder Pain Score (Numeric/FACES): 2 right hip Pain Score (Numeric/FACES): 2 - Related Data Allergies/Adverse Reactions: Allergies Allergy/AdvReac Type Severity Reaction Status Date / Time morphine AdvReac Severe Hallucinati Verified 08/14/17 21:00 ons Home Medications: Home Meds Aspirin [Adult Low Dose Aspirin EC] 81 mg PO QAM 03/19/14 [History] Calcium Carbonate/Vitamin D3 [Calcium 250+D] 1 tab PO ACLUNCH 03/19/14 [History] Citalopram Hydrobromide [Celexa] 20 mg PO QPM 03/19/14 [History] ClonazePAM [KlonoPIN] 0.5 mg PO BEDTIME 03/19/14 [History] Fish Oil/[place]-3 Fatty Acids [Fish Oil 1,000 MG] 1 each PO BID 03/19/14 [History ] Insulin Glarg,Human.Rec.Analog [Lantus] 26 unit SQ DAILY 03/19/14 [History] Magnesium Oxide 400 mg PO ACLUNCH 03/19/14 [History] Multivitamin [Multivitamins] 1 each PO ACLUNCH 03/19/14 [History] Propranolol [Inderal] 20 mg PO BEDTIME 03/19/14 [History] Tacrolimus [Prograf] 3 mg PO BEDTIME 03/19/14 [History] amLODIPine Besylate [Amlodipine Besylate] 2.5 mg PO QAM 03/19/14 [History] predniSONE [Prednisone] 5 mg PO QAM 03/19/14 [History] Azithromycin [Zithromax] 250 mg PO .QMWF 02/15/15 [History] Insulin Aspart [Novolog Flexpen] 5 units SUBCUT BID 02/15/15 [History] Mycophenolate [Myfortic] 1,000 mg PO BID 02/15/15 [History] Ranitidine [Zantac] 150 mg PO BID 02/15/15 [History] Sulfamethoxazole/Trimethoprim [Bactrim Ds Tablet] 1 tab PO .QMWF 02/15/15 [ History] Tacrolimus [Prograf] 4 mg PO DAILY 02/15/15 [History] Voriconazole [Vfend] 200 mg PO QAM 02/15/15 [History] Budesonide/Formoterol [Symbicort 160-4.5 MCG] 2 puff INH BID 08/19/15 [History] Cholecalciferol (Vitamin D3) [Vitamin D3] 1 tab PO DAILY 08/19/15 [History] Oxybutynin 5 mg PO BID 08/14/17 [History] Propranolol [Inderal] 30 mg PO DAILY 08/14/17 [History] Vit A/Vit C/Vit E/Zinc/Copper [Preservision] 1 tab PO BID 08/14/17 [History] atorvaSTATin [Lipitor] 40 mg PO BEDTIME 08/14/17 [History] Past Medical History HEENT History: Reports: Cataract Cardiovascular History: Reports: Afib, CAD, High Cholesterol, Hypertension Respiratory History: Reports: Pulmonary Fibrosis, Sleep Apnea, Other (See Below) Other Respiratory History: IPF- idiopathic pulmonary fibrosis. Gastrointestinal History: Reports: Cholelithiasis Genitourinary History: Reports: Chronic Renal Insuffiency, Renal Disease Psychiatric History: Reports: Depression Endocrine/Metabolic History: Reports: Diabetes, Type II, Osteoporosis, Vitamin D Deficiency Hematologic History: Reports: Blood Transfusion(s) Immunologic History: Reports: Immunosuppression Other Immunologic History: antirejection medication d/t lung transplant Oncologic (Cancer) History: Reports: Lung, Other (See Below) Other Oncologic History: squamous sell skin cancer, PTLD- post transplant lymphocyte disorder - Infectious Disease History Infectious Disease History: Reports: Chicken Pox, Mumps - Past Surgical History HEENT Surgical History: Reports: Cataract Surgery Other HEENT Surgeries/Procedures: eye surgery Cardiovascular Surgical History: Reports: Coronary Artery Stent, Vascular Surgery Other Respiratory Surgeries/Procedures: Right lung removed, tumor removed for left lung, right lung transplant. 2009 GI Surgical History: Reports: Appendectomy, Cholecystectomy, Colonoscopy, Small Bowel Musculoskeletal Surgical History: Reports: Hip Replacement Social & Family History - Family History Family Medical History: Noncontributory - Tobacco Use Smoking Status *Q: Former Smoker Years of Tobacco use: 25 Packs/Tins Daily: 1 Used Tobacco, but Quit: Yes Month Tobacco Last Used: 1984 Second Hand Smoke Exposure: No - Caffeine Use Caffeine Use: Reports: Coffee - Alcohol Use Days Per Week of Alcohol Use: 0 - Recreational Drug Use Recreational Drug Use: No H&P Review of Systems - Review of Systems: Review Of Systems: See Below General: Reports: No Symptoms Musculoskeletal: Reports: Arm Pain, Leg Pain Skin: Reports: No Symptoms Psychiatric: Reports: No Symptoms Neurological: Reports: No Symptoms Hematologic/Lymphatic: Reports: No Symptoms Exam - Exam Exam: See Below - Vital Signs Vital Signs: Last Vital Signs Temp 37.3 C 08/15/17 11:49 Pulse 66 08/15/17 11:49 Resp 18 08/15/17 11:49 BP 109/57 L 08/15/17 11:49 Pulse Ox 94 L 08/15/17 13:15 Weight: 151 lb 14.411 oz - Exam General: Alert, Oriented Back Exam: Normal Inspection Extremities: Arm Pain, Leg Pain Peripheral Pulses: 2+: Radial (L), Radial (R), Dorsalis Pedis (L), Dorsalis Pedis (R) Skin: Warm, Dry, Intact Neurological: Cranial Nerves Intact, Strength Equal Bilateral Neuro Extensive - Mental Status: Alert, Oriented x3 Psychiatric: Alert - Patient Data Lab Results Last 24 hrs: Laboratory Results - last 24 hr 08/15/17 08/15/17 Range/Units 05:05 05:05 WBC 9.3 (4.5-11.0) K/uL RBC 3.70 L (4.30-5.90) M/uL Hgb 10.9 L (12.0-15.0) g/dL Hct 35.3 L (40.0-54.0) % MCV 95 (80-98) fL MCH 30 (27-31) pg MCHC 31 L (32-36) % Plt Count 136 L (150-400) K/uL Neut % (Auto) 79 H (36-66) % Lymph % (Auto) 8 L (24-44) % [place] % (Auto) 12 H (2-6) % Eos % (Auto) 1 L (2-4) % Baso % (Auto) 0 (0-1) % Sodium 141 (140-148) mmol/L Potassium 4.3 (3.6-5.2) mmol/L Chloride 106 (100-108) mmol/L Carbon Dioxide 25 (21-32) mmol/L Anion Gap 10.4 (5.0-14.0) mmol/L BUN 35 H (7-18) mg/dL Creatinine 1.7 H (0.8-1.3) mg/dL Est Cr Clr Drug Dosing 36.18 mL/min Estimated GFR (MDRD) 40 L (>60) Glucose 163 H (74-106) mg/dL Calcium 8.9 (8.5-10.1) mg/dL Result Diagrams: 08/15/17 05:05 08/15/17 05:05 Consult PN Assessment/Plan Procedures: Procedures ASSAY OF AMYLASE (05/17/15) ASSAY OF LIPASE (05/17/15) BREATHING CAPACITY TEST (02/19/14) C-REACTIVE PROTEIN (08/19/15) COMPLETE CBC AUTOMATED (05/17/15) COMPLETE CBC W/AUTO DIFF WBC (08/19/15) COMPREHEN METABOLIC PANEL (02/18/16) CT ABD & PELVIS W/O CONTRAST (08/19/15) EMERGENCY DEPT VISIT (08/19/15) EMERGENCY DEPT VISIT (05/17/15) EMERGENCY DEPT VISIT (03/19/14) EMERGENCY DEPT VISIT (03/19/14) GLUCOSE BLOOD TEST (05/17/15) HYDRATE IV INFUSION ADD-ON (08/19/15) MEASURE BLOOD OXYGEN LEVEL (05/17/15) METABOLIC PANEL TOTAL CA (08/19/15) POLYSOM 6/>YRS CPAP 4/> PARM (02/28/15) POLYSOM ANY AGE 1-3> CHRISTIANO (04/07/17) ROUTINE VENIPUNCTURE (02/18/16) THER/PROPH/DIAG INJ IV PUSH (08/19/15) TX GASTRO INTUB W/ASP (05/17/15) TX/PRO/DX INJ NEW DRUG ADDON (08/19/15) TX/PRO/DX INJ SAME DRUG FOOD SAFETY COORDINATOR (05/17/15) X-RAY EXAM OF ABDOMEN (05/17/15) X-RAY EXAM SERIES ABDOMEN (05/17/15) Problem List Initiated/Reviewed/Updated: Yes Plan: At this time Dr. Ch in myself reviewed the CT report and notes that he needs to be weightbearing as tolerated due to his hip fracture. For his humerus fracture we will keep him in a sling and swath at this time. He will recheck with us in 2 weeks. He can continue on pain medication as prescribed per the hospitalist. He plans to go to a short-term correction stay which will be facilitated by the hospitalist. He will follow-up with us in 2 weeks and notify us if he has any other issues in the meantime.
[2017-08-15] MEDS: Citalopram 20 MG Tab PO SCH (17:14)
[2017-08-15] MEDS ORDERED: Sodium Chloride 0.9% 1,000 ML IV SCH (17:30)
[2017-08-15] MEDS: atorvaSTATin 20 MG Tab PO SCH (21:07)
[2017-08-15] MEDS: ClonazePAM 0.5 MG Tab PO SCH (21:10)
[2017-08-16] MEDS: Insulin Aspart 100 Units/ML 3 ML Pen SUBCUT SCH ×2 (08:11→16:42)
[2017-08-16] MEDS: Formoterol/Mometasone 200-5 MCG 8.8 GM Inhaler IH SCH ×2 (08:23→20:49)
[2017-08-16] MEDS: Azithromycin 250 MG Tab PO SCH (08:23)
[2017-08-16] MEDS: Oxybutynin 5 MG Tab PO SCH ×2 (08:27→20:48)
[2017-08-16] MEDS: predniSONE 5 MG Tab PO SCH (08:27)
[2017-08-16] MEDS: Aspirin 81 MG Tab.EC PO SCH (08:29)
[2017-08-16] MEDS: Mycophenolate Mofetil 250 MG Cap PO SCH ×2 (08:30→20:47)
[2017-08-16] MEDS: Sulfamethoxazole/Trimethoprim 800-160 MG Tab PO SCH (08:30)
[2017-08-16] MEDS: amLODIPine 2.5 MG Tab PO SCH (08:31)
[2017-08-16] MEDS: Propranolol 10 MG Tab PO SCH ×2 (09:14→20:48)
[2017-08-16] MEDS: Tacrolimus 1 MG Cap PO SCH ×2 (09:15→20:47)
[2017-08-16] MEDS: Enoxaparin 40 MG/0.4 ML Syringe SUBCUT SCH (09:17)
[2017-08-16] MEDS: Insulin Detemir 100 Units/ML 3 ML Pen SUBCUT SCH (09:19)
--- NOTE | 2017-08-16 09:32 | PCM.PN ---
- General Info Date of Service: 08/16/17 Subjective Update: Mr. Garcia has remained stable since yesterday, vital signs have been good and he has remained afebrile. He was seen and evaluated by orthopedic service, arm will remain in a splint and he is able to weight-bear as tolerated on the leg. Denies symptoms of significant shortness of breath or chest pain. - Review of Systems General: Reports: Weakness. Denies: Fever, Chills Pulmonary: Reports: No Symptoms Cardiovascular: Reports: No Symptoms Gastrointestinal: Reports: No Symptoms Musculoskeletal: Reports: Arm Pain, Leg Pain - Patient Data Vitals - Most Recent: Last Vital Signs Temp 99.8 F 08/16/17 00:00 Pulse 88 08/16/17 09:14 Resp 16 08/16/17 04:00 BP 130/75 08/16/17 09:14 Pulse Ox 95 08/16/17 04:00 Weight - Most Recent: 151 lb 14.411 oz I&O - Last 24 Hours: Intake & Output 08/15/17 08/16/17 08/16/17 22:59 06:59 14:59 Intake Total 2200 703 Output Total 425 925 200 Balance 1775 -222 -200 Lab Results Last 24 Hours: Laboratory Results - last 24 hr 08/16/17 08/16/17 Range/Units 05:18 05:18 WBC 7.8 (4.5-11.0) K/uL RBC 3.49 L (4.30-5.90) M/uL Hgb 10.4 L (12.0-15.0) g/dL Hct 33.3 L (40.0-54.0) % MCV 95 (80-98) fL MCH 30 (27-31) pg MCHC 31 L (32-36) % Plt Count 131 L (150-400) K/uL Neut % (Auto) 72 H (36-66) % Lymph % (Auto) 15 L (24-44) % [place] % (Auto) 11 H (2-6) % Eos % (Auto) 3 (2-4) % Baso % (Auto) 0 (0-1) % Sodium 141 (140-148) mmol/L Potassium 3.7 (3.6-5.2) mmol/L Chloride 108 (100-108) mmol/L Carbon Dioxide 24 (21-32) mmol/L Anion Gap 8.9 (5.0-14.0) mmol/L BUN 24 H (7-18) mg/dL Creatinine 1.4 H (0.8-1.3) mg/dL Est Cr Clr Drug Dosing 43.83 mL/min Estimated GFR (MDRD) 50 L (>60) Glucose 83 (74-106) mg/dL Calcium 8.4 L (8.5-10.1) mg/dL Med Orders - Current: Current Medications Acetaminophen (Tylenol) 650 mg PO Q4H PRN PRN Reason: Pain (Mild 1-3)/fever Albuterol (Proventil Neb Soln) 2.5 mg NEB Q4H PRN PRN Reason: Shortness Of Breath/wheezing Albuterol/Ipratropium (Duoneb 3.0-0.5 Mg/3 Ml) 3 ml NEB QID PRN PRN Reason: Shortness Of Breath/wheezing Amlodipine Besylate (Norvasc) 2.5 mg PO QAM [facility] Last Admin: 08/16/17 08:31 Dose: 2.5 mg Aspirin (Halfprin) 81 mg PO QAM [facility] Last Admin: 08/16/17 08:29 Dose: 81 mg Atorvastatin Calcium (Lipitor) 40 mg PO BEDTIME [facility] Last Admin: 08/15/17 21:07 Dose: 40 mg Azithromycin (Zithromax) 250 mg PO MoWeFr@0900 [facility] Last Admin: 08/16/17 08:23 Dose: 250 mg Bisacodyl (Dulcolax) 5 mg PO DAILY PRN PRN Reason: Constipation Citalopram Hydrobromide (Celexa) 20 mg PO QPM [facility] Last Admin: 08/15/17 17:14 Dose: 20 mg Clonazepam (Klonopin) 0.5 mg PO BEDTIME [facility] Last Admin: 08/15/17 21:10 Dose: 0.5 mg Docusate Sodium (Colace) 100 mg PO BID PRN PRN Reason: Constipation Enoxaparin Sodium (Lovenox) 40 mg SUBCUT DAILY [facility] Last Admin: 08/16/17 09:17 Dose: 40 mg Fentanyl Citrate (Fentanyl In Ns 20 Mcg/Ml 30 Ml Astronomy Teacher) 0 mcg IV ASDIRECTED PRN; Protocol PRN Reason: Pain Last Admin: 08/15/17 03:55 Dose: 600 mcg Insulin Aspart (Novolog) 5 unit SUBCUT BIDMEALS [facility] Last Admin: 08/16/17 08:11 Dose: 5 units Insulin Detemir (Levemir) 26 unit SUBCUT DAILY [facility] Last Admin: 08/16/17 09:19 Dose: 26 units Lorazepam (Ativan) 1 mg IV Q6H PRN PRN Reason: Nausea/Vomiting Magnesium Oxide (Magnesium Oxide) 400 mg PO ACLUNCH [facility] Last Admin: 08/15/17 11:48 Dose: 400 mg Mometasone Furoate/Formoterol Fumar (Dulera 200-5 Mcg) 2 puff IH BIDRT [facility] Last Admin: 08/16/17 08:23 Dose: 2 puff Mycophenolate Mofetil (Cellcept) 1,000 mg PO BID [facility] Last Admin: 08/16/17 08:30 Dose: 1,000 mg Naloxone HCl (Narcan) 0.4 mg IVPUSH Q2M PRN PRN Reason: Respiratory Distress Naloxone HCl (Narcan) 0.4 mg IVPUSH Q2M PRN PRN Reason: Respiratory Distress Voriconazole [Vfend] (200 Mg*Pom*) 0 mg PO QAM [facility] Last Admin: 08/16/17 09:16 Dose: 200 mg Ondansetron HCl (Zofran Odt) 4 mg PO Q6H PRN PRN Reason: Nausea able to take PO Oxybutynin Chloride (Oxybutynin) 5 mg PO BID [facility] Last Admin: 08/16/17 08:27 Dose: 5 mg Prednisone (Prednisone) 5 mg PO DAILY [facility] Last Admin: 08/16/17 08:27 Dose: 5 mg Propranolol HCl (Inderal) 20 mg PO BEDTIME [facility] Last Admin: 08/15/17 21:07 Dose: 20 mg Propranolol HCl (Inderal) 30 mg PO DAILY [facility] Last Admin: 08/16/17 09:14 Dose: 30 mg Ranitidine HCl (Zantac) 150 mg PO BID [facility] Last Admin: 08/16/17 09:17 Dose: 150 mg Tacrolimus (Prograf) 3 mg PO BEDTIME [facility] Last Admin: 08/15/17 21:07 Dose: 3 mg Tacrolimus (Prograf) 4 mg PO DAILY [facility] Last Admin: 08/16/17 09:15 Dose: 4 mg Temazepam (Restoril) 15 mg PO BEDTIME PRN PRN Reason: Sleep Trimethoprim/Sulfamethoxazole (Septra Ds) 1 tab PO MoWeFr@0900 [facility] Last Admin: 08/16/17 08:30 Dose: 1 tab Discontinued Medications Fentanyl (Sublimaze) 25 mcg IVPUSH ONETIME ONE Stop: 08/14/17 22:28 Last Admin: 08/14/17 22:38 Dose: 25 mcg Fentanyl (Sublimaze) 25 mcg IVPUSH ONETIME ONE Stop: 08/14/17 22:56 Last Admin: 08/14/17 22:59 Dose: 25 mcg Fentanyl (Sublimaze) 50 mcg IVPUSH ONETIME ONE Stop: 08/15/17 00:31 Last Admin: 08/15/17 00:37 Dose: 50 mcg Fentanyl (Sublimaze) 50 mcg IVPUSH ONETIME ONE Stop: 08/15/17 02:00 Last Admin: 08/15/17 02:15 Dose: 50 mcg Sodium Chloride (Normal Saline) 1,000 mls @ 150 mls/hr IV ASDIRECTED [facility] Last Admin: 08/14/17 22:45 Dose: 150 mls/hr Sodium Chloride (Normal Saline) 1,000 mls @ 0 mls/hr IV ASDIRECTED [facility] PRN Reason: KVO Last Admin: 08/16/17 01:46 Dose: 25 mls/hr Lorazepam (Ativan) 1 mg IVPUSH ONETIME ONE Stop: 08/15/17 01:59 Last Admin: 08/15/17 02:12 Dose: 1 mg Mometasone Furoate/Formoterol Fumar (Dulera 200-5 Mcg) 2 puff IH BIDRT [facility] Prednisone (Prednisone) 5 mg PO QAM [facility] Last Admin: 08/15/17 08:41 Dose: 5 mg - Exam Quality Assessment: DVT Prophylaxis General: Alert, Oriented, Cooperative, Mild Distress Lungs: Clear to Auscultation, Normal Respiratory Effort Cardiovascular: Regular Rate, Regular Rhythm, No Murmurs GI/Abdominal Exam: Normal Bowel Sounds, Soft, Non-Tender, No Organomegaly, No Distention Extremities: No Pedal Edema Skin: Warm, Dry, Intact - Problem List Review Problem List Initiated/Reviewed/Updated: Yes - My Orders Last 24 Hours: My Active Orders 08/15/17 10:00 Enoxaparin [Lovenox] 40 mg SUBCUT DAILY 08/15/17 17:00 Glucose [Blood Glucose Check, Bedside] [RC] QIDACANDBED 08/15/17 17:30 Sodium Chloride 0.9% [Normal Saline] 1,000 ml IV ASDIRECTED 08/16/17 09:29 Convert IV to Saline Lock [OM.PC] Routine - Plan Plan:: ASSESSMENT / PLAN FRACTURES OF RIGHT HUMERUS AND RIGHT ACETABULUM -Saline lock IV -Discontinue fentanyl FISH INSPECTOR -Oxycodone with Tylenol 01/30/25 one to 2 every 4 hours as needed for pain -right arm in sling -Right leg weightbearing as tolerated Diabete Type 2 -order Lantas 26 units subcut daily -order Novolog 5 units subcut bid -blood glucose check before meals and at bedtime hx of lung transplant -Continue outpatient medical regimen Maintenance issues -Orders home meds: -Nutrition: regular diet -Condon catheter not indicated at this time -DVT: Lovenox 40 mg subcutaneous daily, SCUDs -PPI; PO Protonix 40mg daily -consult OT for discharge planning -consult PT for strengthing. CODE STATUS: FULL CODE Admission status: Admit to ICU Med-surge overflow Admission justification. This patient will be admitted for inpatient services and is medically appropriate meeting medical necessity for inpatient admission as outlined in my documentation. I reasonably expect the patient will require inpatient services that span. Time over 2 midnights. I reasonably expect this patient to be discharged or transferred within 96 hours after admission to the critical access hospital. Disposition; anticipate discharge to [facility], placement pending Primary care provider: [facility], notified Hospitalist: Dr. Marie
[2017-08-16] MEDS ORDERED: Docusate Sodium Liquid 100 MG/10 ML UD Cup PO SCH (10:15)
[2017-08-16] MEDS: Magnesium Oxide 400 MG Tab PO SCH (11:03)
[2017-08-16] MEDS: Docusate Sodium 100 MG Cap PO SCH ×2 (11:03→20:49)
[2017-08-16] MEDS: Bisacodyl 5 MG Tab PO SCH (11:03)
[2017-08-16] MEDS: Sennosides 8.6 MG Tab PO SCH (11:04)
[2017-08-16] MEDS: Polyethylene Glycol 3350 Powder 17 GM Packet PO SCH (11:04)
[2017-08-16] MEDS: Acetaminophen/oxyCODONE 325-5 MG Tab PO PRN ×3 (11:57→20:49)
[2017-08-16] MEDS: Citalopram 20 MG Tab PO SCH (16:41)
[2017-08-16] MEDS: ClonazePAM 0.5 MG Tab PO SCH (20:48)
[2017-08-16] MEDS: atorvaSTATin 20 MG Tab PO SCH (20:48)
[2017-08-17] MEDS: Formoterol/Mometasone 200-5 MCG 8.8 GM Inhaler IH SCH ×2 (07:20→20:26)
[2017-08-17] MEDS: Insulin Aspart 100 Units/ML 3 ML Pen SUBCUT SCH ×2 (08:03→17:48)
[2017-08-17] MEDS: amLODIPine 2.5 MG Tab PO SCH (09:08)
[2017-08-17] MEDS: Docusate Sodium 100 MG Cap PO SCH ×2 (09:09→20:26)
[2017-08-17] MEDS: Sennosides 8.6 MG Tab PO SCH (09:09)
[2017-08-17] MEDS: Aspirin 81 MG Tab.EC PO SCH (09:09)
[2017-08-17] MEDS: Oxybutynin 5 MG Tab PO SCH ×2 (09:10→20:31)
[2017-08-17] MEDS: predniSONE 5 MG Tab PO SCH (09:10)
[2017-08-17] MEDS: Tacrolimus 1 MG Cap PO SCH ×2 (09:14→20:32)
[2017-08-17] MEDS: Mycophenolate Mofetil 250 MG Cap PO SCH ×2 (09:14→20:24)
[2017-08-17] MEDS: Propranolol 10 MG Tab PO SCH ×2 (09:15→20:47)
[2017-08-17] MEDS: Bisacodyl 5 MG Tab PO SCH (09:19)
[2017-08-17] MEDS: Insulin Detemir 100 Units/ML 3 ML Pen SUBCUT SCH (09:19)
[2017-08-17] MEDS: Enoxaparin 40 MG/0.4 ML Syringe SUBCUT SCH (09:22)
--- NOTE | 2017-08-17 09:30 | PCM.PN ---
- General Info Date of Service: 08/17/17 Subjective Update: Mr. Garcia has remained stable since yesterday, vital signs are good and he has been afebrile. Pain control is adequate on current oral pain medications. Has not yet had a bowel movement and intake of liquids has been somewhat suboptimal. - Patient Data Vitals - Most Recent: Last Vital Signs Temp 96.3 F 08/17/17 00:00 Pulse 88 08/17/17 09:15 Resp 16 08/17/17 04:00 BP 100/58 L 08/17/17 09:15 Pulse Ox 97 08/17/17 04:00 Weight - Most Recent: 151 lb 14.411 oz I&O - Last 24 Hours: Intake & Output 08/16/17 08/17/17 08/17/17 22:59 06:59 14:59 Intake Total 720 420 Output Total 250 Balance 720 170 Med Orders - Current: Current Medications Acetaminophen (Tylenol) 650 mg PO Q4H PRN PRN Reason: Pain (Mild 1-3)/fever Albuterol (Proventil Neb Soln) 2.5 mg NEB Q4H PRN PRN Reason: Shortness Of Breath/wheezing Albuterol/Ipratropium (Duoneb 3.0-0.5 Mg/3 Ml) 3 ml NEB QID PRN PRN Reason: Shortness Of Breath/wheezing Amlodipine Besylate (Norvasc) 2.5 mg PO QAM [facility] Last Admin: 08/17/17 09:08 Dose: 2.5 mg Aspirin (Halfprin) 81 mg PO QAM [facility] Last Admin: 08/17/17 09:09 Dose: 81 mg Atorvastatin Calcium (Lipitor) 40 mg PO BEDTIME [facility] Last Admin: 08/16/17 20:48 Dose: 40 mg Azithromycin (Zithromax) 250 mg PO MoWeFr@0900 [facility] Last Admin: 08/16/17 08:23 Dose: 250 mg Bisacodyl (Dulcolax) 5 mg PO DAILY PRN PRN Reason: Constipation Bisacodyl (Dulcolax) 5 mg PO DAILY [facility] Last Admin: 08/17/17 09:19 Dose: 5 mg Citalopram Hydrobromide (Celexa) 20 mg PO QPM [facility] Last Admin: 08/16/17 16:41 Dose: 20 mg Clonazepam (Klonopin) 0.5 mg PO BEDTIME [facility] Last Admin: 08/16/17 20:48 Dose: 0.5 mg Docusate Sodium (Colace) 100 mg PO BID PRN PRN Reason: Constipation Docusate Sodium (Colace) 100 mg PO BID [facility] Last Admin: 08/17/17 09:09 Dose: 100 mg Enoxaparin Sodium (Lovenox) 40 mg SUBCUT DAILY [facility] Last Admin: 08/16/17 09:17 Dose: 40 mg Insulin Aspart (Novolog) 5 unit SUBCUT BIDMEALS [facility] Last Admin: 08/17/17 08:03 Dose: 5 units Insulin Detemir (Levemir) 26 unit SUBCUT DAILY [facility] Last Admin: 08/17/17 09:19 Dose: 26 units Lorazepam (Ativan) 1 mg IV Q6H PRN PRN Reason: Nausea/Vomiting Magnesium Oxide (Magnesium Oxide) 400 mg PO ACLUNCH [facility] Last Admin: 08/16/17 11:03 Dose: 400 mg Mometasone Furoate/Formoterol Fumar (Dulera 200-5 Mcg) 2 puff IH BIDRT [facility] Last Admin: 08/17/17 07:20 Dose: 2 puff Mycophenolate Mofetil (Cellcept) 1,000 mg PO BID [facility] Last Admin: 08/17/17 09:14 Dose: 1,000 mg Voriconazole [Vfend] (200 Mg*Pom*) 0 mg PO QAM [facility] Last Admin: 08/17/17 09:17 Dose: 200 mg Ondansetron HCl (Zofran Odt) 4 mg PO Q6H PRN PRN Reason: Nausea able to take PO Oxybutynin Chloride (Oxybutynin) 5 mg PO BID [facility] Last Admin: 08/17/17 09:10 Dose: 5 mg Oxycodone/Acetaminophen (Percocet 325-5 Mg) 1 - 2 tab PO Q4H PRN PRN Reason: Pain Last Admin: 08/16/17 20:49 Dose: 1 tab Polyethylene Glycol (Miralax) 17 gm PO DAILY [facility] Last Admin: 08/16/17 11:04 Dose: 17 gm Prednisone (Prednisone) 5 mg PO DAILY [facility] Last Admin: 08/17/17 09:10 Dose: 5 mg Propranolol HCl (Inderal) 20 mg PO BEDTIME [facility] Last Admin: 08/16/17 20:48 Dose: 20 mg Propranolol HCl (Inderal) 30 mg PO DAILY [facility] Last Admin: 08/17/17 09:15 Dose: 30 mg Ranitidine HCl (Zantac) 150 mg PO BID [facility] Last Admin: 08/17/17 09:11 Dose: 150 mg Senna (Senna) 8.6 mg PO DAILY [facility] Last Admin: 08/17/17 09:09 Dose: 8.6 mg Tacrolimus (Prograf) 3 mg PO BEDTIME [facility] Last Admin: 08/16/17 20:47 Dose: 3 mg Tacrolimus (Prograf) 4 mg PO DAILY [facility] Last Admin: 08/17/17 09:14 Dose: 4 mg Temazepam (Restoril) 15 mg PO BEDTIME PRN PRN Reason: Sleep Trimethoprim/Sulfamethoxazole (Septra Ds) 1 tab PO MoWeFr@0900 [facility] Last Admin: 08/16/17 08:30 Dose: 1 tab Discontinued Medications Fentanyl (Sublimaze) 25 mcg IVPUSH ONETIME ONE Stop: 08/14/17 22:28 Last Admin: 08/14/17 22:38 Dose: 25 mcg Fentanyl (Sublimaze) 25 mcg IVPUSH ONETIME ONE Stop: 08/14/17 22:56 Last Admin: 08/14/17 22:59 Dose: 25 mcg Fentanyl (Sublimaze) 50 mcg IVPUSH ONETIME ONE Stop: 08/15/17 00:31 Last Admin: 08/15/17 00:37 Dose: 50 mcg Fentanyl (Sublimaze) 50 mcg IVPUSH ONETIME ONE Stop: 08/15/17 02:00 Last Admin: 08/15/17 02:15 Dose: 50 mcg Fentanyl Citrate (Fentanyl In Ns 20 Mcg/Ml 30 Ml Special Effects Specialist) 0 mcg IV ASDIRECTED PRN; Protocol PRN Reason: Pain Last Admin: 08/15/17 03:55 Dose: 600 mcg Sodium Chloride (Normal Saline) 1,000 mls @ 150 mls/hr IV ASDIRECTED [facility] Last Admin: 08/14/17 22:45 Dose: 150 mls/hr Sodium Chloride (Normal Saline) 1,000 mls @ 0 mls/hr IV ASDIRECTED [facility] PRN Reason: KVO Last Admin: 08/16/17 01:46 Dose: 25 mls/hr Lorazepam (Ativan) 1 mg IVPUSH ONETIME ONE Stop: 08/15/17 01:59 Last Admin: 08/15/17 02:12 Dose: 1 mg Mometasone Furoate/Formoterol Fumar (Dulera 200-5 Mcg) 2 puff IH BIDRT [facility] Naloxone HCl (Narcan) 0.4 mg IVPUSH Q2M PRN PRN Reason: Respiratory Distress Naloxone HCl (Narcan) 0.4 mg IVPUSH Q2M PRN PRN Reason: Respiratory Distress Prednisone (Prednisone) 5 mg PO QAM [facility] Last Admin: 08/15/17 08:41 Dose: 5 mg - Exam Quality Assessment: DVT Prophylaxis General: Alert, Oriented, Cooperative, Mild Distress Lungs: Clear to Auscultation, Normal Respiratory Effort Cardiovascular: Regular Rate, Regular Rhythm, No Murmurs GI/Abdominal Exam: Normal Bowel Sounds, Soft, Non-Tender, No Organomegaly, No Distention Extremities: No Pedal Edema, Arm Pain, Leg Pain Skin: Warm, Dry, Intact - Problem List Review Problem List Initiated/Reviewed/Updated: Yes - My Orders Last 24 Hours: My Active Orders 08/16/17 09:29 Convert IV to Saline Lock [OM.PC] Routine 08/16/17 10:11 Acetaminophen/oxyCODONE [Percocet 325-5 MG] 1 - 2 tab PO Q4H PRN - Plan Plan:: ASSESSMENT / PLAN FRACTURES OF RIGHT HUMERUS AND RIGHT ACETABULUM -Saline lock IV -Oxycodone with Tylenol 01/30/25 one to 2 every 4 hours as needed for pain -right arm in sling -Right leg weightbearing as tolerated -Continue physical therapy Diabete Type 2 -order Lantas 26 units subcut daily -order Novolog 5 units subcut bid -blood glucose check before meals and at bedtime hx of lung transplant -Continue outpatient medical regimen Maintenance issues -Orders home meds: -Nutrition: regular diet -Condon catheter not indicated at this time -DVT: Lovenox 40 mg subcutaneous daily, SCUDs -PPI; PO Protonix 40mg daily -consult OT for discharge planning -consult PT for strengthing. CODE STATUS: FULL CODE Admission status: Admit to ICU Med-surge overflow Admission justification. This patient will be admitted for inpatient services and is medically appropriate meeting medical necessity for inpatient admission as outlined in my documentation. I reasonably expect the patient will require inpatient services that span. Time over 2 midnights. I reasonably expect this patient to be discharged or transferred within 96 hours after admission to the critical access hospital. Disposition; anticipate discharge to senior living, placement pending August 19 Primary care provider: [facility], notified Hospitalist: Dr. Marie
[2017-08-17] MEDS: Polyethylene Glycol 3350 Powder 17 GM Packet PO SCH (09:50)
[2017-08-17] MEDS: Magnesium Oxide 400 MG Tab PO SCH (11:25)
[2017-08-17] MEDS: Acetaminophen/oxyCODONE 325-5 MG Tab PO PRN ×2 (15:03→20:20)
[2017-08-17] MEDS: Citalopram 20 MG Tab PO SCH (17:49)
[2017-08-17] MEDS: atorvaSTATin 20 MG Tab PO SCH (20:31)
[2017-08-17] MEDS: ClonazePAM 0.5 MG Tab PO SCH (20:55)
--- NOTE | 2017-08-17 21:53 | PCM.SN ---
- Free Text/Narrative Note: time; 21:10 call from [address] [place] [address] Mr. Garcia has not had a bowel movement, and is expecting discharge to [facility] in am today he has been given bowel stim without success. requesting a suppository a; constipation p; order Ducolax supp. now and prn. continue present plan of care.
[2017-08-17] MEDS: Bisacodyl 10 MG Supp RECTAL PRN (22:04)
[2017-08-18] MEDS: Formoterol/Mometasone 200-5 MCG 8.8 GM Inhaler IH SCH ×2 (07:21→20:18)
[2017-08-18] MEDS: amLODIPine 2.5 MG Tab PO SCH (08:33)
[2017-08-18] MEDS: Propranolol 10 MG Tab PO SCH ×2 (08:34→20:24)
[2017-08-18] MEDS: Enoxaparin 40 MG/0.4 ML Syringe SUBCUT SCH (08:34)
[2017-08-18] MEDS: Oxybutynin 5 MG Tab PO SCH ×2 (08:34→20:19)
[2017-08-18] MEDS: Bisacodyl 5 MG Tab PO SCH (08:35)
[2017-08-18] MEDS: predniSONE 5 MG Tab PO SCH (08:35)
[2017-08-18] MEDS: Aspirin 81 MG Tab.EC PO SCH (08:35)
[2017-08-18] MEDS: Sennosides 8.6 MG Tab PO SCH (08:35)
[2017-08-18] MEDS: Mycophenolate Mofetil 250 MG Cap PO SCH ×2 (08:36→20:18)
[2017-08-18] MEDS: Docusate Sodium 100 MG Cap PO SCH ×2 (08:36→20:18)
[2017-08-18] MEDS: Insulin Aspart 100 Units/ML 3 ML Pen SUBCUT SCH ×2 (08:36→17:29)
[2017-08-18] MEDS: Insulin Detemir 100 Units/ML 3 ML Pen SUBCUT SCH (08:38)
[2017-08-18] MEDS: Polyethylene Glycol 3350 Powder 17 GM Packet PO SCH (09:12)
[2017-08-18] MEDS: Acetaminophen/oxyCODONE 325-5 MG Tab PO PRN ×2 (11:16→18:04)
[2017-08-18] MEDS: Magnesium Oxide 400 MG Tab PO SCH (13:35)
[2017-08-18] MEDS: Tacrolimus 1 MG Cap PO SCH ×2 (13:35→20:24)
--- NOTE | 2017-08-18 14:35 | PCM.PN ---
- General Info Date of Service: 08/18/17 Subjective Update: Mr. Garcia is been stable since yesterday, he is noted a modest improvement in pain on almost a daily basis. He has been able to be up in the chair and ambulating short distances. Plan is for discharge to retirement tomorrow morning area Functional Status: Reports: Pain Controlled, Tolerating Diet, Ambulating - Review of Systems General: Denies: Fever, Weakness, Chills Pulmonary: Reports: No Symptoms Cardiovascular: Reports: No Symptoms Gastrointestinal: Reports: No Symptoms Musculoskeletal: Reports: Arm Pain, Leg Pain - Patient Data Vitals - Most Recent: Last Vital Signs Temp 98.6 F 08/18/17 11:06 Pulse 71 08/18/17 11:06 Resp 20 08/18/17 11:06 BP 120/69 08/18/17 11:06 Pulse Ox 99 08/18/17 11:06 Weight - Most Recent: 151 lb 14.411 oz I&O - Last 24 Hours: Intake & Output 08/17/17 08/18/17 08/18/17 22:59 06:59 14:59 Intake Total 48 Output Total 100 Balance 48 -100 Med Orders - Current: Current Medications Acetaminophen (Tylenol) 650 mg PO Q4H PRN PRN Reason: Pain (Mild 1-3)/fever Albuterol (Proventil Neb Soln) 2.5 mg NEB Q4H PRN PRN Reason: Shortness Of Breath/wheezing Albuterol/Ipratropium (Duoneb 3.0-0.5 Mg/3 Ml) 3 ml NEB QID PRN PRN Reason: Shortness Of Breath/wheezing Amlodipine Besylate (Norvasc) 2.5 mg PO QAM [facility] Last Admin: 08/18/17 08:33 Dose: 2.5 mg Aspirin (Halfprin) 81 mg PO QAM [facility] Last Admin: 08/18/17 08:35 Dose: 81 mg Atorvastatin Calcium (Lipitor) 40 mg PO BEDTIME [facility] Last Admin: 08/17/17 20:31 Dose: 40 mg Azithromycin (Zithromax) 250 mg PO MoWeFr@0900 [facility] Last Admin: 08/16/17 08:23 Dose: 250 mg Bisacodyl (Dulcolax) 5 mg PO DAILY PRN PRN Reason: Constipation Bisacodyl (Dulcolax) 5 mg PO DAILY [facility] Last Admin: 08/18/17 08:35 Dose: 5 mg Bisacodyl (Dulcolax) 10 mg RECTAL BID PRN PRN Reason: Constipation Last Admin: 08/17/17 22:04 Dose: 10 mg Citalopram Hydrobromide (Celexa) 20 mg PO QPM [facility] Last Admin: 08/17/17 17:49 Dose: 20 mg Clonazepam (Klonopin) 0.5 mg PO BEDTIME [facility] Last Admin: 08/17/17 20:55 Dose: 0.5 mg Docusate Sodium (Colace) 100 mg PO BID PRN PRN Reason: Constipation Docusate Sodium (Colace) 100 mg PO BID [facility] Last Admin: 08/18/17 08:36 Dose: 100 mg Enoxaparin Sodium (Lovenox) 40 mg SUBCUT DAILY [facility] Last Admin: 08/18/17 08:34 Dose: 40 mg Insulin Aspart (Novolog) 5 unit SUBCUT BIDMEALS [facility] Last Admin: 08/18/17 08:36 Dose: 5 units Insulin Detemir (Levemir) 26 unit SUBCUT DAILY [facility] Last Admin: 08/18/17 08:38 Dose: 26 units Lorazepam (Ativan) 1 mg IV Q6H PRN PRN Reason: Nausea/Vomiting Magnesium Oxide (Magnesium Oxide) 400 mg PO ACLUNCH [facility] Last Admin: 08/18/17 13:35 Dose: 400 mg Mometasone Furoate/Formoterol Fumar (Dulera 200-5 Mcg) 2 puff IH BIDRT [facility] Last Admin: 08/18/17 07:21 Dose: 2 puff Mycophenolate Mofetil (Cellcept) 1,000 mg PO BID [facility] Last Admin: 08/18/17 08:36 Dose: 1,000 mg Voriconazole [Vfend] (200 Mg*Pom*) 0 mg PO QAM [facility] Last Admin: 08/18/17 08:39 Dose: 200 mg Ondansetron HCl (Zofran Odt) 4 mg PO Q6H PRN PRN Reason: Nausea able to take PO Oxybutynin Chloride (Oxybutynin) 5 mg PO BID [facility] Last Admin: 08/18/17 08:34 Dose: 5 mg Oxycodone/Acetaminophen (Percocet 325-5 Mg) 1 - 2 tab PO Q4H PRN PRN Reason: Pain Last Admin: 08/18/17 11:16 Dose: 2 tab Polyethylene Glycol (Miralax) 17 gm PO DAILY [facility] Last Admin: 08/18/17 09:12 Dose: 17 gm Prednisone (Prednisone) 5 mg PO DAILY [facility] Last Admin: 08/18/17 08:35 Dose: 5 mg Propranolol HCl (Inderal) 20 mg PO BEDTIME [facility] Last Admin: 08/17/17 20:47 Dose: 20 mg Propranolol HCl (Inderal) 30 mg PO DAILY [facility] Last Admin: 08/18/17 08:34 Dose: 30 mg Ranitidine HCl (Zantac) 150 mg PO BID [facility] Last Admin: 08/18/17 08:35 Dose: 150 mg Senna (Senna) 8.6 mg PO DAILY [facility] Last Admin: 08/18/17 08:35 Dose: 8.6 mg Tacrolimus (Prograf) 3 mg PO BEDTIME [facility] Last Admin: 08/17/17 20:32 Dose: 3 mg Tacrolimus (Prograf) 4 mg PO DAILY [facility] Last Admin: 08/18/17 13:35 Dose: 4 mg Temazepam (Restoril) 15 mg PO BEDTIME PRN PRN Reason: Sleep Trimethoprim/Sulfamethoxazole (Septra Ds) 1 tab PO MoWeFr@0900 [facility] Last Admin: 08/16/17 08:30 Dose: 1 tab Discontinued Medications Fentanyl (Sublimaze) 25 mcg IVPUSH ONETIME ONE Stop: 08/14/17 22:28 Last Admin: 08/14/17 22:38 Dose: 25 mcg Fentanyl (Sublimaze) 25 mcg IVPUSH ONETIME ONE Stop: 08/14/17 22:56 Last Admin: 08/14/17 22:59 Dose: 25 mcg Fentanyl (Sublimaze) 50 mcg IVPUSH ONETIME ONE Stop: 08/15/17 00:31 Last Admin: 08/15/17 00:37 Dose: 50 mcg Fentanyl (Sublimaze) 50 mcg IVPUSH ONETIME ONE Stop: 08/15/17 02:00 Last Admin: 08/15/17 02:15 Dose: 50 mcg Fentanyl Citrate (Fentanyl In Ns 20 Mcg/Ml 30 Ml Outside Laborer) 0 mcg IV ASDIRECTED PRN; Protocol PRN Reason: Pain Last Admin: 08/15/17 03:55 Dose: 600 mcg Sodium Chloride (Normal Saline) 1,000 mls @ 150 mls/hr IV ASDIRECTED [facility] Last Admin: 08/14/17 22:45 Dose: 150 mls/hr Sodium Chloride (Normal Saline) 1,000 mls @ 0 mls/hr IV ASDIRECTED [facility] PRN Reason: KVO Last Admin: 08/16/17 01:46 Dose: 25 mls/hr Lorazepam (Ativan) 1 mg IVPUSH ONETIME ONE Stop: 08/15/17 01:59 Last Admin: 08/15/17 02:12 Dose: 1 mg Mometasone Furoate/Formoterol Fumar (Dulera 200-5 Mcg) 2 puff IH BIDRT [facility] Naloxone HCl (Narcan) 0.4 mg IVPUSH Q2M PRN PRN Reason: Respiratory Distress Naloxone HCl (Narcan) 0.4 mg IVPUSH Q2M PRN PRN Reason: Respiratory Distress Prednisone (Prednisone) 5 mg PO QAM [facility] Last Admin: 08/15/17 08:41 Dose: 5 mg - Exam Quality Assessment: DVT Prophylaxis General: Alert, Oriented, Cooperative, Mild Distress Lungs: Clear to Auscultation, Normal Respiratory Effort Cardiovascular: Regular Rate, Regular Rhythm, No Murmurs GI/Abdominal Exam: Normal Bowel Sounds, Soft, Non-Tender, No Organomegaly, No Distention Extremities: No Pedal Edema, Arm Pain, Leg Pain Skin: Warm, Dry, Intact - Problem List Review Problem List Initiated/Reviewed/Updated: Yes - My Orders Last 24 Hours: My Active Orders 08/18/17 16:30 GLUCOSE POC LAB TO COLLECT [POC] QIDACANDBED 08/18/17 21:00 GLUCOSE POC LAB TO COLLECT [POC] QIDACANDBED - Plan Plan:: ASSESSMENT / PLAN FRACTURES OF RIGHT HUMERUS AND RIGHT ACETABULUM- reports that pain has modestly improved over the past 24 hours and he has been able to walk short distances. -Saline lock IV -Oxycodone with Tylenol 01/30/25 one to 2 every 4 hours as needed for pain -right arm in sling -Right leg weightbearing as tolerated -Continue physical therapy Diabete Type 2 -order Lantas 26 units subcut daily -order Novolog 5 units subcut bid -blood glucose check before meals and at bedtime hx of lung transplant -Continue outpatient medical regimen Maintenance issues -Orders home meds: -Nutrition: regular diet -Condon catheter not indicated at this time -DVT: Lovenox 40 mg subcutaneous daily, SCUDs -PPI; PO Protonix 40mg daily -consult OT for discharge planning -consult PT for strengthing. CODE STATUS: FULL CODE Admission status: Admit to ICU Med-surge overflow Admission justification. This patient will be admitted for inpatient services and is medically appropriate meeting medical necessity for inpatient admission as outlined in my documentation. I reasonably expect the patient will require inpatient services that span. Time over 2 midnights. I reasonably expect this patient to be discharged or transferred within 96 hours after admission to the critical access hospital. Disposition; anticipate discharge to retirement Tomorrow Primary care provider: [facility], notified Hospitalist: Dr. Marie
--- NOTE | 2017-08-18 14:59 | PCM.DCSUM1 ---
Discharge Summary - Hospital Course Brief History: Mr. Garcia is a 72-year-old male who was admitted through the emergency department after experiencing a fall resulting in a right humerus fracture, right acetabular fracture, and right inferior pubic ramus fracture. - Discharge Data Discharge Date: 08/18/17 Discharge Disposition: DC/Tfer to SNF 03 Condition: Fair - Discharge Diagnosis/Problem(s) (1) Inferior pubic ramus fracture SNOMED Code(s): 140690944 ICD Code: S32.599A - OTH FRACTURE OF UNSP PUBIS, INIT ENCNTR FOR CLOSED FRACTURE Status: Acute Current Visit: Yes Qualifiers: Laterality: right (2) Acetabulum fracture, right SNOMED Code(s): 67122735 ICD Code: S32.401A - UNSP FRACTURE OF RIGHT ACETABULUM, INIT FOR CLOS FX Status: Acute Priority: High Current Visit: Yes Qualifiers: Encounter type: initial encounter Sublocation of acetabulum: unspecified portion of acetabulum Fracture type: closed Fracture alignment: nondisplaced Qualified Code(s): S32.401A - Unspecified fracture of right acetabulum, initial encounter for closed fracture (3) Right humeral fracture SNOMED Code(s): 13342284 ICD Code: S42.301A - UNSP FRACTURE OF SHAFT OF HUMERUS, RIGHT ARM, INIT Status: Acute Priority: High Current Visit: Yes Qualifiers: Encounter type: initial encounter Humerus Location: surgical neck Fracture type: closed Fracture morphology: unspecified fracture morphology Fracture alignment: displaced Qualified Code(s): S42.211A - Unspecified displaced fracture of surgical neck of right humerus, initial encounter for closed fracture (4) Diabetes type 2, controlled SNOMED Code(s): 94555245 ICD Code: E11.9 - TYPE 2 DIABETES MELLITUS WITHOUT COMPLICATIONS Status: Chronic Priority: Low Current Visit: Yes Qualifiers: Diabetes mellitus complication status: without complication Diabetes mellitus exterminator termite insulin use: with exterminator termite use Qualified Code(s): E11.9 - Type 2 diabetes mellitus without complications; Z79.4 - USP (current) use of insulin; Z79.4 - USP (current) use of insulin; Z79.4 - intermediate accountant ( current) use of insulin; Z79.4 - USP (current) use of insulin (5) Lung transplanted SNOMED Code(s): 464406660 ICD Code: Z94.2 - LUNG TRANSPLANT STATUS Status: Chronic Priority: Low Current Visit: Yes (6) Stage III chronic kidney disease SNOMED Code(s): 583931193 ICD Code: N18.3 - CHRONIC KIDNEY DISEASE, STAGE 3 (MODERATE) Status: Chronic Priority: Medium Current Visit: No - Patient Summary/Data Consults: Consultations 08/15/17 03:09 Consult to Physician [CONS] Urgent Consulting Provider: Junaid Ch Courtlakhwinder Call Completed to Consulting Physician: No Reason for Consult: fx rt humerus, rt acetabular OT Evaluation and Treatment [CONS] Routine Please Evaluate and Treat. OT Reason for Consult: Discharge Planning This query below is only for informational purposes and is not editable. PT Evaluation and Treatment [CONS] Routine Please Evaluate and Treat. PT Reason for Consult: Ambulation This query below is only for informational purposes and is not editable. Hospital Course: Mr. Garcia is a 72-year-old gentleman who fell and was brought into the emergency department for evaluation. CT scan documented a right acetabular fracture as well as right inferior pubic ramus fracture. X-rays documented a fracture of the right humerus. He was admitted to the hospital and given IV pain medication as well as IV fluids for hydration. He was seen and evaluated by the orthopedic service the following day, the acetabular fracture was not felt to require surgical intervention and weightbearing as tolerated was recommended. The recommended no surgical intervention for the humerus fracture with placement of the arm in a splint until orthopedic follow-up as an outpatient in 2 weeks. He was transitioned to oral pain medications and seen daily by physical therapy as well as occupational therapy. He was kept in the hospital until fpc placement could be facilitated which was delayed by the weekend and lack of available fpc beds. The arm will be kept in a splint and he will be on weightbearing as tolerated. Daily occupational and physical therapy will be ordered at the fpc. He will resume his previous diet and a follow-up appointment will be scheduled in the orthopedic department in 2 weeks. - Patient Instructions Diet: Usual Diet as Tolerated Activity: Full Weight Bearing ( as tolerated) Activity, Other: keep right arm in sling Other/Special Instructions: Daily restorative physical therapy and occupational therapy while at the fpc. Please schedule follow-up appointment in the orthopedics department in 2 weeks. - Discharge Plan Prescriptions/Med Rec: Acetaminophen/oxyCODONE [Percocet 325-5 MG] 1 tab PO Q4H PRN #30 tablet PRN Reason: Pain Home Medications: Home Meds Aspirin [Adult Low Dose Aspirin EC] 81 mg PO QAM 03/19/14 [History] Calcium Carbonate/Vitamin D3 [Calcium 250+D] 1 tab PO ACLUNCH 03/19/14 [History] Citalopram Hydrobromide [Celexa] 20 mg PO QPM 03/19/14 [History] ClonazePAM [KlonoPIN] 0.5 mg PO BEDTIME 03/19/14 [History] Fish Oil/[place]-3 Fatty Acids [Fish Oil 1,000 MG] 1 each PO BID 03/19/14 [History ] Insulin Glarg,Human.Rec.Analog [Lantus] 26 unit SQ DAILY 03/19/14 [History] Magnesium Oxide 400 mg PO ACLUNCH 03/19/14 [History] Multivitamin [Multivitamins] 1 each PO ACLUNCH 03/19/14 [History] Propranolol [Inderal] 20 mg PO BEDTIME 03/19/14 [History] Tacrolimus [Prograf] 3 mg PO BEDTIME 03/19/14 [History] amLODIPine Besylate [Amlodipine Besylate] 2.5 mg PO QAM 03/19/14 [History] predniSONE [Prednisone] 5 mg PO QAM 03/19/14 [History] Azithromycin [Zithromax] 250 mg PO .QMWF 02/15/15 [History] Insulin Aspart [Novolog Flexpen] 5 units SUBCUT BID 02/15/15 [History] Mycophenolate [Myfortic] 1,000 mg PO BID 02/15/15 [History] Ranitidine [Zantac] 150 mg PO BID 02/15/15 [History] Sulfamethoxazole/Trimethoprim [Bactrim Ds Tablet] 1 tab PO .QMWF 02/15/15 [ History] Tacrolimus [Prograf] 4 mg PO DAILY 02/15/15 [History] Voriconazole [Vfend] 200 mg PO QAM 02/15/15 [History] Budesonide/Formoterol [Symbicort 160-4.5 MCG] 2 puff INH BID 08/19/15 [History] Cholecalciferol (Vitamin D3) [Vitamin D3] 1 tab PO DAILY 08/19/15 [History] Oxybutynin 5 mg PO BID 08/14/17 [History] Propranolol [Inderal] 30 mg PO DAILY 08/14/17 [History] Vit A/Vit C/Vit E/Zinc/Copper [Preservision] 1 tab PO BID 08/14/17 [History] atorvaSTATin [Lipitor] 40 mg PO BEDTIME 08/14/17 [History] Acetaminophen/oxyCODONE [Percocet 325-5 MG] 1 tab PO Q4H PRN #30 tablet [Rx] Forms: ED Department Discharge Referrals: Michel Hurley PA [Primary Care Provider] - - Patient Data Vitals - Most Recent: Last Vital Signs Temp 98.6 F 08/18/17 11:06 Pulse 71 08/18/17 11:06 Resp 20 08/18/17 11:06 BP 120/69 08/18/17 11:06 Pulse Ox 99 08/18/17 11:06 Weight - Most Recent: 151 lb 14.411 oz I&O - Last 24 hours: Intake & Output 08/17/17 08/18/17 08/18/17 22:59 06:59 14:59 Intake Total 48 Output Total 100 Balance 48 -100 Med Orders - Current: Current Medications Acetaminophen (Tylenol) 650 mg PO Q4H PRN PRN Reason: Pain (Mild 1-3)/fever Albuterol (Proventil Neb Soln) 2.5 mg NEB Q4H PRN PRN Reason: Shortness Of Breath/wheezing Albuterol/Ipratropium (Duoneb 3.0-0.5 Mg/3 Ml) 3 ml NEB QID PRN PRN Reason: Shortness Of Breath/wheezing Amlodipine Besylate (Norvasc) 2.5 mg PO QAM [facility] Last Admin: 08/18/17 08:33 Dose: 2.5 mg [facility]irin ([facility]in) [facility] Last Admin: 08/18/17 08:35 Dose: 81 mg Atorvastatin Calcium (Lipitor) 40 mg PO BEDTIME [facility] Last Admin: 08/17/17 20:31 Dose: 40 mg Azithromycin (Zithromax) 250 mg PO MoWeFr@0900 [facility] Last Admin: 08/16/17 08:23 Dose: 250 mg Bisacodyl (Dulcolax) 5 mg PO DAILY PRN PRN Reason: Constipation Bisacodyl (Dulcolax) 5 mg PO DAILY [facility] Last Admin: 08/18/17 08:35 Dose: 5 mg Bisacodyl (Dulcolax) 10 mg RECTAL BID PRN PRN Reason: Constipation Last Admin: 08/17/17 22:04 Dose: 10 mg Citalopram Hydrobromide (Celexa) 20 mg PO QPM [facility] Last Admin: 08/17/17 17:49 Dose: 20 mg Clonazepam (Klonopin) 0.5 mg PO BEDTIME [facility] Last Admin: 08/17/17 20:55 Dose: 0.5 mg Docusate Sodium (Colace) 100 mg PO BID PRN PRN Reason: Constipation Docusate Sodium (Colace) 100 mg PO BID [facility] Last Admin: 08/18/17 08:36 Dose: 100 mg Enoxaparin Sodium (Lovenox) 40 mg SUBCUT DAILY [facility] Last Admin: 08/18/17 08:34 Dose: 40 mg Insulin Aspart (Novolog) 5 unit SUBCUT BIDMEALS [facility] Last Admin: 08/18/17 08:36 Dose: 5 units Insulin Detemir (Levemir) 26 unit SUBCUT DAILY [facility] Last Admin: 08/18/17 08:38 Dose: 26 units Lorazepam (Ativan) 1 mg IV Q6H PRN PRN Reason: Nausea/Vomiting Magnesium Oxide (Magnesium Oxide) 400 mg PO ACLUNCH [facility] Last Admin: 08/18/17 13:35 Dose: 400 mg Mometasone Furoate/Formoterol Fumar (Dulera 200-5 Mcg) 2 puff IH BIDRT [facility] Last Admin: 08/18/17 07:21 Dose: 2 puff Mycophenolate Mofetil (Cellcept) 1,000 mg PO BID [facility] Last Admin: 08/18/17 08:36 Dose: 1,000 mg Voriconazole [Vfend] (200 Mg*Pom*) 0 mg PO QAM [facility] Last Admin: 08/18/17 08:39 Dose: 200 mg Ondansetron HCl (Zofran Odt) 4 mg PO Q6H PRN PRN Reason: Nausea able to take PO Oxybutynin Chloride (Oxybutynin) 5 mg PO BID [facility] Last Admin: 08/18/17 08:34 Dose: 5 mg Oxycodone/Acetaminophen (Percocet 325-5 Mg) 1 - 2 tab PO Q4H PRN PRN Reason: Pain Last Admin: 08/18/17 11:16 Dose: 2 tab Polyethylene Glycol (Miralax) 17 gm PO DAILY [facility] Last Admin: 08/18/17 09:12 Dose: 17 gm Prednisone (Prednisone) 5 mg PO DAILY [facility] Last Admin: 08/18/17 08:35 Dose: 5 mg Propranolol HCl (Inderal) 20 mg PO BEDTIME [facility] Last Admin: 08/17/17 20:47 Dose: 20 mg Propranolol HCl (Inderal) 30 mg PO DAILY [facility] Last Admin: 08/18/17 08:34 Dose: 30 mg Ranitidine HCl (Zantac) 150 mg PO BID [facility] Last Admin: 08/18/17 08:35 Dose: 150 mg Senna (Senna) 8.6 mg PO DAILY [facility] Last Admin: 08/18/17 08:35 Dose: 8.6 mg Tacrolimus (Prograf) 3 mg PO BEDTIME [facility] Last Admin: 08/17/17 20:32 Dose: 3 mg Tacrolimus (Prograf) 4 mg PO DAILY [facility] Last Admin: 08/18/17 13:35 Dose: 4 mg Temazepam (Restoril) 15 mg PO BEDTIME PRN PRN Reason: Sleep Trimethoprim/Sulfamethoxazole (Septra Ds) 1 tab PO MoWeFr@0900 [facility] Last Admin: 08/16/17 08:30 Dose: 1 tab Discontinued Medications Fentanyl (Sublimaze) 25 mcg IVPUSH ONETIME ONE Stop: 08/14/17 22:28 Last Admin: 08/14/17 22:38 Dose: 25 mcg Fentanyl (Sublimaze) 25 mcg IVPUSH ONETIME ONE Stop: 08/14/17 22:56 Last Admin: 08/14/17 22:59 Dose: 25 mcg Fentanyl (Sublimaze) 50 mcg IVPUSH ONETIME ONE Stop: 08/15/17 00:31 Last Admin: 08/15/17 00:37 Dose: 50 mcg Fentanyl (Sublimaze) 50 mcg IVPUSH ONETIME ONE Stop: 08/15/17 02:00 Last Admin: 08/15/17 02:15 Dose: 50 mcg Fentanyl Citrate (Fentanyl In Ns 20 Mcg/Ml 30 Ml Pocket Stitcher) 0 mcg IV ASDIRECTED PRN; Protocol PRN Reason: Pain Last Admin: 08/15/17 03:55 Dose: 600 mcg Sodium Chloride (Normal Saline) 1,000 mls @ 150 mls/hr IV ASDIRECTED [facility] Last Admin: 08/14/17 22:45 Dose: 150 mls/hr Sodium Chloride (Normal Saline) 1,000 mls @ 0 mls/hr IV ASDIRECTED [facility]I PRN Reason: KVO Last Admin: 08/16/17 01:46 Dose: 25 mls/hr Lorazepam (Ativan) 1 mg IVPUSH ONETIME ONE Stop: 08/15/17 01:59 Last Admin: 08/15/17 02:12 Dose: 1 mg Mometasone Furoate/Formoterol Fumar (Dulera 200-5 Mcg) 2 puff IH BIDRT [facility] Naloxone HCl (Narcan) 0.4 mg IVPUSH Q2M PRN PRN Reason: Respiratory Distress Naloxone HCl (Narcan) 0.4 mg IVPUSH Q2M PRN PRN Reason: Respiratory Distress Prednisone (Prednisone) 5 mg PO QAM [facility] Last Admin: 08/15/17 08:41 Dose: 5 mg *Q Meaningful Use (DIS) - VTE *Q VTE Criteria *Q: - Stroke *Q Stroke Criteria *Q: - AMI *Q AMI Criteria *Q:
[2017-08-18] MEDS: Bisacodyl 10 MG Supp RECTAL PRN (16:23)
[2017-08-18] MEDS: Citalopram 20 MG Tab PO SCH (16:24)
[2017-08-18] MEDS: ClonazePAM 0.5 MG Tab PO SCH (20:19)
[2017-08-18] MEDS: atorvaSTATin 20 MG Tab PO SCH (20:19)
[2017-08-19] MEDS: Formoterol/Mometasone 200-5 MCG 8.8 GM Inhaler IH SCH (07:20)
[2017-08-19 07:36] VITALS: BP 111/83
[2017-08-19] MEDS: Insulin Aspart 100 Units/ML 3 ML Pen SUBCUT SCH (07:39)
[2017-08-19] MEDS: Propranolol 10 MG Tab PO SCH (08:57)
[2017-08-19] MEDS: Mycophenolate Mofetil 250 MG Cap PO SCH (08:58)
[2017-08-19] MEDS: predniSONE 5 MG Tab PO SCH (08:59)
[2017-08-19] MEDS: Sulfamethoxazole/Trimethoprim 800-160 MG Tab PO SCH (09:00)
[2017-08-19] MEDS: Bisacodyl 5 MG Tab PO SCH (09:00)
[2017-08-19] MEDS: Oxybutynin 5 MG Tab PO SCH (09:01)
[2017-08-19] MEDS: Sennosides 8.6 MG Tab PO SCH (09:01)
[2017-08-19] MEDS: Docusate Sodium 100 MG Cap PO SCH (09:01)
[2017-08-19] MEDS: Enoxaparin 40 MG/0.4 ML Syringe SUBCUT SCH (09:02)
[2017-08-19] MEDS: amLODIPine 2.5 MG Tab PO SCH (09:02)
[2017-08-19] MEDS: Aspirin 81 MG Tab.EC PO SCH (09:03)
[2017-08-19] MEDS: Azithromycin 250 MG Tab PO SCH (09:03)
[2017-08-19] MEDS: Polyethylene Glycol 3350 Powder 17 GM Packet PO SCH (09:05)
[2017-08-19] MEDS: Insulin Detemir 100 Units/ML 3 ML Pen SUBCUT SCH (09:06)
[2017-08-19] MEDS: Acetaminophen/oxyCODONE 325-5 MG Tab PO PRN (09:21)
[2017-08-19] MEDS: Tacrolimus 1 MG Cap PO SCH (10:27)
== END 2017-08-19 11:10 | DRG 562 ==
LOC: JP.ED 20:50 → JP.ICU 08-15 02:08 → JP.MS 08-17 17:45
PROVIDERS: ADMIT Hospitalist; ATTEND Internal Medicine
DX: S42.211A Unspecified displaced fracture of surgical neck of right humerus, initial encounter for closed fracture (principal); S32.401A Unspecified fracture of right acetabulum, initial encounter for closed fracture; S32.599A Other specified fracture of unspecified pubis, initial encounter for closed fracture; Z94.2 Lung transplant status; E11.9 Type 2 diabetes mellitus without complications; Z79.4 Long term (current) use of insulin; N18.3 Chronic kidney disease, stage 3 (moderate); W19.XXXA Unspecified fall, initial encounter; I25.10 Atherosclerotic heart disease of native coronary artery without angina pectoris; I48.91 Unspecified atrial fibrillation; Z79.52 Long term (current) use of systemic steroids; I12.9 Hypertensive chronic kidney disease with stage 1 through stage 4 chronic kidney disease, or unspecified chronic kidney disease; Z87.891 Personal history of nicotine dependence; E78.00 Pure hypercholesterolemia, unspecified; K59.00 Constipation, unspecified
CPT/HCPCS: 36415; 73030 ×2; 73502 ×2; 73700; 80053; 85025; 96361; 96374; 96376; 99285; J3010 ×3; J7040; 36600; 80048; 82962; 94640-76; 94664; 94762; 96375; 97110-GO; 97110-GP; 97162-GP; 97165-GO; 97530-GP; 97535-GO; 99284; A9270-GY; J1650; J2060

== ENCOUNTER 2017-11-17 11:31 | Emergency (ER) | payer MEDICARE, OTHER ==
[2017-11-17] MEDS ORDERED: Acetaminophen 325 MG Tab PO ONE (12:32)
--- NOTE | 2017-11-17 12:33 | EDM.PDOC ---
ED HPI GENERAL MEDICAL PROBLEM - General Chief Complaint: Respiratory Problem Stated Complaint: SOB Time Seen by Provider: 11/17/17 12:20 Source of Information: Reports: Patient, Family, Old Records, Other (team coordinator) History Limitations: Reports: No Limitations - History of Present Illness INITIAL COMMENTS - FREE TEXT/NARRATIVE: 72 yo male s/p R lung transplant presents with progressive SOB over the past week. He denies fever. He has been expectorating green sputum at times. Dyspnea is much worse with exertion. He is not on home oxygen. Here now with his from [place], [place]. He has not been seen over the past week by his primary. Onset: Gradual Onset Date: 11/11/17 Duration: Day(s):, Getting Worse Location: Reports: Chest Quality: Reports: Other (no pain) Severity: Mild Improves with: Reports: Rest Worsens with: Reports: Movement Context: Reports: Other (Hx of R lung transplant for pulmonary fibrosis/lung CA) Associated Symptoms: Reports: Cough, Shortness of Breath. 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 (see below) (none) Left Upper Posterior Leg Pain Score (Numeric/FACES): 4 - Related Data Allergies Allergy/AdvReac Type Severity Reaction Status Date / Time morphine AdvReac Severe Hallucinati Verified 08/14/17 21:00 ons oxycodone AdvReac Disorientat Verified 10/18/17 14:20 ion Home Meds: Home Meds Aspirin [Adult Low Dose Aspirin EC] 81 mg PO QAM 03/19/14 [History] Calcium Carbonate/Vitamin D3 [Calcium 250+D] 1 tab PO DAILY 03/19/14 [History] Citalopram Hydrobromide [Celexa] 40 mg PO QPM 03/19/14 [History] ClonazePAM [KlonoPIN] 0.5 mg PO BEDTIME 03/19/14 [History] Fish Oil/[place]-3 Fatty Acids [Fish Oil 1,000 MG] 1 each PO BID 03/19/14 [History ] Insulin Glarg,Human.Rec.Analog [Lantus] 24 unit SQ DAILY 03/19/14 [History] Magnesium Oxide 400 mg PO DAILY 03/19/14 [History] Multivitamin [Multivitamins] 1 each PO DAILY 03/19/14 [History] Propranolol [Inderal] 20 mg PO BEDTIME 03/19/14 [History] Tacrolimus [Prograf] 1.5 mg PO BEDTIME 03/19/14 [History] predniSONE [Prednisone] 2.5 mg PO QAM 03/19/14 [History] Azithromycin [Zithromax] 250 mg PO .QMWF 02/15/15 [History] Insulin Aspart [Novolog Flexpen] 5 units SUBCUT BID 02/15/15 [History] Ranitidine [Zantac] 150 mg PO BID 02/15/15 [History] Sulfamethoxazole/Trimethoprim [Bactrim Ds Tablet] 1 tab PO .QMWF 02/15/15 [ History] Tacrolimus [Prograf] 2 mg PO DAILY 02/15/15 [History] Voriconazole [Vfend] 200 mg PO QAM 02/15/15 [History] Budesonide/Formoterol [Symbicort 160-4.5 MCG] 2 puff INH BID 08/19/15 [History] Cholecalciferol (Vitamin D3) [Vitamin D3] 1 tab PO DAILY 08/19/15 [History] Oxybutynin 5 mg PO BID 08/14/17 [History] Propranolol [Inderal] 30 mg PO DAILY 08/14/17 [History] Acetaminophen [Tylenol Extra Strength] 500 mg PO Q6H PRN 09/02/17 [History] Mycophenolate Mofetil [Cellcept] 1,000 mg PO BID 09/16/17 [History] Vit A/Vit C/Vit E/Zinc/Copper [Preservision Areds Softgel] 2 cap PO BID [History] Furosemide 40 mg PO DAILY #7 tablet 11/17/17 [Rx] Gabapentin [Neurontin] 100 mg PO TID 11/17/17 [History] Rosuvastatin Calcium [Crestor] 40 mg PO BEDTIME 11/17/17 [History] Past Medical History HEENT History: Reports: Cataract Cardiovascular History: Reports: Afib, CAD, High Cholesterol, Hypertension, Other (See Below) Other Cardiovascular History: Aortic insufficiecy Respiratory History: Reports: Pulmonary Fibrosis, Sleep Apnea, Other (See Below) Other Respiratory History: IPF- idiopathic pulmonary fibrosis. Gastrointestinal History: Reports: Cholelithiasis, Diverticulosis, Other (See Below) Other Gastrointestinal History: Elevated liver enzymes Genitourinary History: Reports: Chronic Renal Insuffiency, Renal Disease Musculoskeletal History: Reports: Other (See Below) Other Musculoskeletal History: f/u R humerus Fx and R hip. left hip pain Psychiatric History: Reports: Depression Endocrine/Metabolic History: Reports: Diabetes, Type II, Osteoporosis, Vitamin D Deficiency Hematologic History: Reports: Anemia, Blood Transfusion(s) Immunologic History: Reports: Immunosuppression Other Immunologic History: antirejection medication d/t lung transplant Oncologic (Cancer) History: Reports: Lung, Other (See Below) Other Oncologic History: squamous sell skin cancer, PTLD- post transplant lymphocyte disorder Dermatologic History: Reports: Other (See Below) Other Dermatologic History: squamous cell carcinoma - Infectious Disease History Infectious Disease History: Reports: Shingles - Past Surgical History HEENT Surgical History: Reports: Cataract Surgery, Tonsillectomy Other HEENT Surgeries/Procedures: eye surgery Cardiovascular Surgical History: Reports: Coronary Artery Stent, Vascular Surgery Other Respiratory Surgeries/Procedures: Right lung removed, tumor removed for left lung, right lung transplant. 2009 GI Surgical History: Reports: Appendectomy, Cholecystectomy, Colon, Colonoscopy , Colostomy, Small Bowel Musculoskeletal Surgical History: Reports: Hip Replacement, Other (See Below) Other Musculoskeletal Surgeries/Procedures:: elbow surgery Dermatological Surgical History: Reports: Skin Biopsy Social & Family History - Family History Family Medical History: Noncontributory - Tobacco Use Smoking Status *Q: Former Smoker Years of Tobacco use: 25 Packs/Tins Daily: 1 Used Tobacco, but Quit: Yes Month Tobacco Last Used: 1984 Second Hand Smoke Exposure: No - Caffeine Use Caffeine Use: Reports: Coffee - Alcohol Use Days Per Week of Alcohol Use: 0 - Recreational Drug Use Recreational Drug Use: No ED ROS GENERAL - Review of Systems Review Of Systems: See Below Constitutional: Reports: No Symptoms HEENT: Reports: No Symptoms Respiratory: Reports: Shortness of Breath, Cough, Sputum. Denies: Wheezing, Pleuritic Chest Pain, Hemoptysis Cardiovascular: Reports: No Symptoms GI/Abdominal: Reports: No Symptoms : Reports: No Symptoms Musculoskeletal: Reports: No Symptoms Skin: Reports: No Symptoms Neurological: Reports: No Symptoms Psychiatric: Reports: No Symptoms ED EXAM, GENERAL - Physical Exam Exam: See Below Exam Limited By: No Limitations General Appearance: Alert, WD/WN, No Apparent Distress, Thin Eye Exam: Bilateral Eye: Normal Inspection Ears: Normal External Exam, Normal Canal, Normal TMs, Hearing Loss Ear Exam: Bilateral Ear: Auricle Normal, Canal Normal, TM normal Nose: Normal Inspection, Normal Mucosa, No Blood Throat/Mouth: Normal Inspection, Normal Lips, Normal Oropharynx, Normal Voice, No Airway Compromise Head: Atraumatic, Normocephalic Neck: Normal Inspection, Supple, Non-Tender Respiratory/Chest: No Respiratory Distress, No Accessory Muscle Use, Rhonchi (L base). No: Respiratory Distress, Wheezing, Retractions Cardiovascular: Tachycardia GI/Abdominal: Normal Bowel Sounds, Soft, Non-Tender, No Distention Back Exam: Normal Inspection. No: CVA Tenderness (R), CVA Tenderness (L) Extremities: Normal Inspection, Normal Range of Motion, Non-Tender, No Pedal Edema Neurological: Alert, Oriented, CN II-XII Intact, Normal Cognition, No Motor/ Sensory Deficits Psychiatric: Normal Affect, Normal Mood Skin Exam: Warm, Dry, Intact, Normal Color, No Rash Lymphatic: No Adenopathy Course - Vital Signs Text/Narrative:: conversation with transplant team at the [facility] x 2 during the course of this ER visit. Last Recorded V/S: Last Vital Signs Temp 35.0 C L 11/17/17 11:52 Pulse 88 11/17/17 14:30 Resp 18 11/17/17 14:30 BP 136/83 11/17/17 14:30 Pulse Ox 97 11/17/17 14:30 - Orders/Labs/Meds Orders: Active Orders 24 hr Category Date Time Status Chest 2V [CR] Stat Exams 11/17/17 12:07 Taken VL Duplex Lwr Ext Veins Comp [US] Stat Exams 11/17/17 14:04 Taken Labs: Laboratory Tests 11/17/17 11/17/17 11/17/17 Range/Units 12:17 12:17 12:40 WBC 9.3 (4.5-11.0) K/uL RBC 4.26 L (4.30-5.90) M/uL Hgb 12.6 D (12.0-15.0) g/dL Hct 41.1 (40.0-54.0) % MCV 97 (80-98) fL MCH 30 (27-31) pg MCHC 31 L (32-36) % Plt Count 233 (150-400) K/uL D-Dimer, Quantitative 1690 H (0.0-400.0) ng/mL Sodium 141 (140-148) mmol/L Potassium 4.8 (3.6-5.2) mmol/L Chloride 104 (100-108) mmol/L Carbon Dioxide 26 (21-32) mmol/L Anion Gap 11.3 (5.0-14.0) mmol/L BUN 34 H (7-18) mg/dL Creatinine 1.6 H (0.8-1.3) mg/dL Est Cr Clr Drug Dosing 35.61 mL/min Estimated GFR (MDRD) 43 L (>60) Glucose 165 H (74-106) mg/dL Calcium 9.3 (8.5-10.1) mg/dL Troponin I (0.000-0.056) ng/mL C-Reactive Protein 0.69 H (0.0-0.3) mg/dL NT-Pro-B Natriuret Pep (5-125) pg/mL 11/17/17 11/17/17 Range/Units 12:42 12:45 WBC (4.5-11.0) K/uL RBC (4.30-5.90) M/uL Hgb (12.0-15.0) g/dL Hct (40.0-54.0) % MCV (80-98) fL MCH (27-31) pg MCHC (32-36) % Plt Count (150-400) K/uL D-Dimer, Quantitative (0.0-400.0) ng/mL Sodium (140-148) mmol/L Potassium (3.6-5.2) mmol/L Chloride (100-108) mmol/L Carbon Dioxide (21-32) mmol/L Anion Gap (5.0-14.0) mmol/L BUN (7-18) mg/dL Creatinine (0.8-1.3) mg/dL Est Cr Clr Drug Dosing mL/min Estimated GFR (MDRD) (>60) Glucose (74-106) mg/dL Calcium (8.5-10.1) mg/dL Troponin I < 0.017 (0.000-0.056) ng/mL C-Reactive Protein (0.0-0.3) mg/dL NT-Pro-B Natriuret Pep 744 H (5-125) pg/mL Meds: Medications Discontinued Medications Generic Name Dose Route Start Last Admin Trade Name Christine PRN Reason Stop Dose Admin Acetaminophen 650 mg 11/17/17 12:32 11/17/17 12:41 Tylenol PO 11/17/17 12:33 650 mg NOW ONE Administration Furosemide 40 mg 11/17/17 15:21 Lasix PO 11/17/17 15:22 ONETIME ONE - Radiology Interpretation Free Text/Narrative:: CXR-pleural effusion R, slight increase in pulm vasculature-both new since 02/07 Bilateral venous dopplers(done because of high d-dimer and CRF preventing CT PE study)-negative Departure - Departure Time of Disposition: 15:25 Disposition: Home, Self-Care 01 Condition: Fair Clinical Impression: Pleural effusion on right, HAN (dyspnea on exertion), Elevated d-dimer, Chronic renal failure, stage 3 (moderate) - Discharge Information Prescriptions: Furosemide 40 mg PO DAILY #7 tablet Referrals: Michel Hurley PA [Primary Care Provider] - Forms: ED Department Discharge Additional Instructions: Add furosemide 40 mg every morning to your current meds for the next several days. Avoid salt. Stay in touch with your doctors regarding your SOB. - My Orders Last 24 Hours: My Active Orders 11/17/17 12:07 Chest 2V [CR] Stat 11/17/17 14:04 VL Duplex Lwr Ext Veins Comp [US] Stat - Assessment/Plan Last 24 Hours: My Active Orders 11/17/17 12:07 Chest 2V [CR] Stat 11/17/17 14:04 VL Duplex Lwr Ext Veins Comp [US] Stat
[2017-11-17 14:33] VITALS: BP 136/83
[2017-11-17] MEDS ORDERED: Furosemide 40 MG Tab PO ONE (15:21)
[2017-11-17] MEDS ORDERED: Gabapentin 100 MG Cap PO ONE (15:38)
--- NOTE | 2017-11-18 09:18 | US ---
VL Duplex Lwr Ext Veins Comp HISTORY: Elevated d-dimer. FINDINGS: The common femoral through the popliteal veins were assessed with duplex imaging bilaterall y. The veins demonstrate complete compressibility. There is no evidence of intraluminal thrombus. The re is normal phasic variation of the waveform with respirations. There is augmented flow with calf co mpression. IMPRESSION: Normal bilateral lower extremity venous Doppler ultrasound.
--- NOTE | 2017-11-18 09:24 | CR ---
Two-view chest Comparison: 2011 There is chronic fibrosis in the left lung base. There has been interval development of a small bilat eral pleural effusions. There is mild vascular engorgement. There is pleural-based scarring periphera lly on the right. There is a fracture of the proximal right humerus Impression: 1. Mild CHF with mild vascular engorgement and small pleural effusions. 2. Chronic fibrosis left lower lobe.
== END 2017-11-17 16:22 | disposition home or self-care (01) ==
LOC: JP.ED 11:31
DX: J90 Pleural effusion, not elsewhere classified (principal); R79.1 Abnormal coagulation profile; I12.9 Hypertensive chronic kidney disease with stage 1 through stage 4 chronic kidney disease, or unspecified chronic kidney disease; E11.22 Type 2 diabetes mellitus with diabetic chronic kidney disease; N18.3 Chronic kidney disease, stage 3 (moderate); I25.10 Atherosclerotic heart disease of native coronary artery without angina pectoris; I48.91 Unspecified atrial fibrillation; E78.00 Pure hypercholesterolemia, unspecified; F32.9 Major depressive disorder, single episode, unspecified; Z98.890 Other specified postprocedural states; Z95.5 Presence of coronary angioplasty implant and graft; Z94.2 Lung transplant status; Z87.891 Personal history of nicotine dependence; Z79.4 Long term (current) use of insulin; Z79.899 Other long term (current) drug therapy; Z88.5 Allergy status to narcotic agent; Z88.6 Allergy status to analgesic agent
CPT/HCPCS: 36415; 71046; 80048; 83880; 84484; 85027; 85379; 86140; 93970; 99284; A9270

== ENCOUNTER 2018-04-22 11:37 | Emergency (ER) | payer MEDICARE, OTHER ==
[2018-04-22 12:31] VITALS: BP 139/76
--- NOTE | 2018-04-22 13:54 | EDM.PDOC ---
<Mary Tracy - Last Filed: 04/22/18 14:24> ED HPI GENERAL MEDICAL PROBLEM - General Chief Complaint: General Stated Complaint: failure to thrive Time Seen by Provider: 04/22/18 13:00 Source of Information: Reports: Patient, Family History Limitations: Reports: No Limitations - History of Present Illness INITIAL COMMENTS - FREE TEXT/NARRATIVE: Patient, accompanied by present for concerns of failure to thrive. Patient has no energy, sleeping about 16 hours a day. Loss of 10# or so since visit to the [facility] the end of February. Onset: Gradual Onset Date: 04/12/18 Duration: Chronic Location: Reports: Generalized Severity: Moderate Associated Symptoms: Reports: Malaise, Weakness Other Treatments HAND FLESHER: pt has home health nurse, PT/OT working with him at home - Related Data Allergies Allergy/AdvReac Type Severity Reaction Status Date / Time dronabinol [From Marinol] Allergy Delusions Verified 04/22/18 12:49 morphine AdvReac Severe Hallucinati Verified 08/14/17 21:00 ons oxycodone AdvReac Disorientat Verified 10/18/17 14:20 ion Home Meds: Home Meds Aspirin [Adult Low Dose Aspirin EC] 81 mg PO QAM 03/19/14 [History] Calcium Carbonate/Vitamin D3 [Calcium 250+D] 1 tab PO DAILY 03/19/14 [History] Citalopram Hydrobromide [Celexa] 40 mg PO QPM 03/19/14 [History] ClonazePAM [KlonoPIN] 0.5 mg PO BEDTIME 03/19/14 [History] Fish Oil/Biddle-3 Fatty Acids [Fish Oil 1,000 MG] 1 each PO BID 03/19/14 [History ] Insulin Glarg,Human.Rec.Analog [Lantus] 14 unit SQ DAILY 03/19/14 [History] Magnesium Oxide 400 mg PO DAILY 03/19/14 [History] Multivitamin [Multivitamins] 1 each PO DAILY 03/19/14 [History] Tacrolimus [Prograf] 1 mg PO BEDTIME 03/19/14 [History] predniSONE [Prednisone] 2.5 mg PO QAM 03/19/14 [History] Azithromycin [Zithromax] 250 mg PO .QMWF 02/15/15 [History] Insulin Aspart [Novolog Flexpen] See Protocol SUBCUT ASDIRECTED 02/15/15 [ History] Ranitidine [Zantac] 150 mg PO BID 02/15/15 [History] Sulfamethoxazole/Trimethoprim [Bactrim Ds Tablet] 400 mg PO .QMWF 02/15/15 [ History] Tacrolimus [Prograf] 1 mg PO DAILY 02/15/15 [History] Voriconazole [Vfend] 200 mg PO QAM 02/15/15 [History] Budesonide/Formoterol [Symbicort 160-4.5 MCG] 2 puff INH BID 08/19/15 [History] Cholecalciferol (Vitamin D3) [Vitamin D3] 1 tab PO DAILY 08/19/15 [History] Oxybutynin 5 mg PO BID 08/14/17 [History] Acetaminophen [Tylenol Extra Strength] 500 mg PO Q6H PRN 09/02/17 [History] Mycophenolate Mofetil [Cellcept] 1,000 mg PO BID 09/16/17 [History] Vit A/Vit C/Vit E/Zinc/Copper [Preservision Areds Softgel] 2 cap PO BID [History] Voriconazole 200 mg PO DAILY 04/22/18 [History] Past Medical History HEENT History: Reports: Cataract Cardiovascular History: Reports: Afib, CAD, High Cholesterol, Hypertension, Other (See Below) Other Cardiovascular History: Aortic insufficiecy Respiratory History: Reports: Pulmonary Fibrosis, Sleep Apnea, Other (See Below) Other Respiratory History: IPF- idiopathic pulmonary fibrosis. Gastrointestinal History: Reports: Cholelithiasis, Diverticulosis, Other (See Below) Other Gastrointestinal History: Elevated liver enzymes Genitourinary History: Reports: Chronic Renal Insuffiency, Renal Disease Musculoskeletal History: Reports: Other (See Below) Other Musculoskeletal History: f/u R humerus Fx and R hip. left hip pain Psychiatric History: Reports: Depression Endocrine/Metabolic History: Reports: Diabetes, Type II, Osteoporosis, Vitamin D Deficiency Hematologic History: Reports: Anemia, Blood Transfusion(s) Immunologic History: Reports: Immunosuppression Other Immunologic History: antirejection medication d/t lung transplant Oncologic (Cancer) History: Reports: Lung, Other (See Below) Other Oncologic History: squamous sell skin cancer, PTLD- post transplant lymphocyte disorder Dermatologic History: Reports: Other (See Below) Other Dermatologic History: squamous cell carcinoma - Infectious Disease History Infectious Disease History: Reports: Shingles - Past Surgical History HEENT Surgical History: Reports: Cataract Surgery, Tonsillectomy Other HEENT Surgeries/Procedures: eye surgery Cardiovascular Surgical History: Reports: Coronary Artery Stent, Vascular Surgery Other Respiratory Surgeries/Procedures: Right lung removed, tumor removed for left lung, right lung transplant. 2009 GI Surgical History: Reports: Appendectomy, Cholecystectomy, Colon, Colonoscopy , Colostomy, Small Bowel Other GI Surgeries/Procedures: g-tube Musculoskeletal Surgical History: Reports: Hip Replacement, Other (See Below) Other Musculoskeletal Surgeries/Procedures:: elbow surgery Dermatological Surgical History: Reports: Skin Biopsy Social & Family History - Family History Family Medical History: Noncontributory - Tobacco Use Smoking Status *Q: Former Smoker Used Tobacco, but Quit: Yes Month/Year Tobacco Last Used: quiet in the - Caffeine Use Caffeine Use: Reports: None - Recreational Drug Use Recreational Drug Use: No - Living Situation & Occupation Living situation: Reports: , with Spouse Occupation: Retired Social History Comment: currently minimal activity out side of home. without energy or interest in former activities that broght pleasure ED ROS GENERAL - Review of Systems Review Of Systems: See Below Constitutional: Reports: Malaise, Weakness, Fatigue HEENT: Reports: No Symptoms Respiratory: Reports: No Symptoms. Denies: Shortness of Breath, Cough Cardiovascular: Reports: No Symptoms. Denies: Chest Pain, Dyspnea on Exertion, Edema GI/Abdominal: Reports: Decreased Appetite, Other (feeding tube supplementation with nepro - followed by voicer) : Reports: No Symptoms Musculoskeletal: Reports: No Symptoms Skin: Reports: Dryness Neurological: Reports: No Symptoms Psychiatric: Reports: Anxiety, Depression Hematologic/Lymphatic: Reports: No Symptoms Immunologic: Reports: No Symptoms ED EXAM, GENERAL - Physical Exam Exam: See Below Free Text/Narrative:: Exam negative physically. No pain, injury of medical complaint. Concerned about depression Exam Limited By: No Limitations General Appearance: Lethargic Respiratory/Chest: No Respiratory Distress, Lungs Clear, Normal Breath Sounds, No Accessory Muscle Use Cardiovascular: Normal Peripheral Pulses, Regular Rate, Rhythm, No Edema GI/Abdominal: Normal Bowel Sounds, Soft, Non-Tender Neurological: Alert, Oriented, Slow to Respond Psychiatric: Depressed Mood, Flat Affect Skin Exam: Warm, Dry, Intact Course - Vital Signs Text/Narrative:: Pt seen today for depressive symptoms. Pt denies physical complaints of pain or specific concerns at this time. Pt and agree that depression is worse in the last 10 days or so. Pt is sleeping more and is not doing anything that use to bring pleasure to him. states he is less active, is not watching TV or utilizing his Ipad as he used to do. Discussion of medications and what has worked in the past. Currently on Citalopram 20mg and in agreement to increase to 40MG daily. Agreement to see psychiatry to help with medication management and follow up with depressive state. Patient denies concerns or thoughts of self harm or bringing harm to others. Jong suicidal thoughts Pt to continue to participate in PT/OT at home Appointments made for patient with [facility] Appointment May 01 with Thea's nurse at 1030 am Appointment May 15 with [facility] 1000am Please have admission and discharge notes from [place] sent to the clinic Increase Citalopram to 40mg each day Last Recorded V/S: Last Vital Signs Temp 98.4 F 04/22/18 12:42 Pulse 80 04/22/18 12:42 Resp 30 H 04/22/18 12:42 BP 139/76 04/22/18 12:42 Pulse Ox 98 04/22/18 12:42 Departure - Departure Disposition: Home, Self-Care 01 Condition: Fair Clinical Impression: Depression - Discharge Information Instructions: Persistent Depressive Disorder, Adult Referrals: Michel Hurley PA [Primary Care Provider] - Forms: ED Department Discharge Care Plan Goals: Resident/PA IDX Provider #_ * Alen Shah MD was personally available for consultation in the ED. I have reviewed the chart and agree with the documentation as recorded by the Resident, including the assessment, treatment plan and disposition. * Alen Shah MD personally saw and examined the patient. I have reviewed and agree with Paige Tracy's findings. No clinical evidence of medical or traumatic cause for patient's presenting symptoms.Continue your medications with the increase in citalopram as discussed. Recheck with your appointments as scheduled discussed as well. Return anytime if worsening or concerns. <Alen Bishop - Last Filed: 04/23/18 10:27> Departure - Departure Time of Disposition: 14:51
== END 2018-04-22 14:52 | disposition home or self-care (01) ==
LOC: JP.ED 11:37
DX: F32.9 Major depressive disorder, single episode, unspecified (principal); I12.9 Hypertensive chronic kidney disease with stage 1 through stage 4 chronic kidney disease, or unspecified chronic kidney disease; E11.22 Type 2 diabetes mellitus with diabetic chronic kidney disease; N18.9 Chronic kidney disease, unspecified; I48.91 Unspecified atrial fibrillation; E78.00 Pure hypercholesterolemia, unspecified; Z87.891 Personal history of nicotine dependence; Z79.82 Long term (current) use of aspirin; Z79.899 Other long term (current) drug therapy; Z88.8 Allergy status to other drugs, medicaments and biological substances; Z88.6 Allergy status to analgesic agent
CPT/HCPCS: 99284